=== PATIENT | female | born 1930 | race Caucasian/White ===

== ENCOUNTER → 2016-06-21 | Outpatient (CLI) | payer MEDICARE, OTHER | LOC: YCHH 09:54 | PROVIDERS: ATTEND Family Medicine | DX: E11.21 Type 2 diabetes mellitus with diabetic nephropathy (principal); I10 Essential (primary) hypertension; D64.9 Anemia, unspecified; E78.5 Hyperlipidemia, unspecified ==

== ENCOUNTER → 2016-07-21 | Outpatient (CLI) | payer MEDICARE, OTHER | LOC: GMA 17:58 | PROVIDERS: ATTEND Nurse Practitioner Family | DX: N39.0 Urinary tract infection, site not specified (principal) ==

== ENCOUNTER 2016-09-03 16:06 | Emergency (ER) | payer MEDICARE, OTHER ==
--- NOTE | 2016-09-03 16:28 | ED.PDOC ---
History of Present Illness - General Chief Complaint: Lower Extremity Injury Time Seen by Provider: 09/03/16 16:20 Source: patient - History of Present Illness Initial Comments: Ms. Myrna Danielle 85 y/o female stated her left knee wobbled while walking on her yard today twisting his left foot and ankle.Denies passing out dizziness,neck or hip pain remembers incident no head or neck pain. Occurred: just prior to arrival Pain - Lower Extremity: moderate: Left Leg, Left Knee, Left Bee, Left Ankle, Left Foot Method of Injury: fell Improving Factors: immobilization Worsening Factors: nothing Allergies/Adverse Reactions: Allergies NO KNOWN ALLERGY Allergy (Unverified 06/22/14 06:27) Home Medications: Ambulatory Orders Acetaminophen W/ Codeine [Tylenol W/ CODEINE #3] 1 ea PO Q8HRS PRN #10 Alendronate Sodium [Fosamax] 70 mg PO DAILY 06/22/14 Amlodipine Besylate [Norvasc] 10 mg PO DAILY 06/22/14 Furosemide 40 mg PO DAILY 06/22/14 Gabapentin 300 mg PO DAILY 06/22/14 Metformin HCl 500 mg PO DAILY 06/22/14 Potassium Chloride [K-Tab] 10 meq PO DAILY 06/22/14 Simvastatin 40 mg PO DAILY 06/22/14 Warfarin Sodium 3 mg PO DAILY 06/22/14 Tramadol HCl 50 mg PO Q6HRS #30 tab 09/03/16 Review of Systems - Review of Systems Constitutional: States: no symptoms reported EENTM: States: no symptoms reported Respiratory: States: no symptoms reported Cardiology: States: no symptoms reported Gastrointestinal/Abdominal: States: no symptoms reported Genitourinary: States: no symptoms reported Musculoskeletal: States: see HPI Skin: States: no symptoms reported Neurological: States: no symptoms reported Endocrine: States: no symptoms reported Past Medical History (General) - Patient Medical History Hx Seizures: No Hx Stroke: No Hx Dementia: No Hx Asthma: No Hx of COPD: No Hx Cardiac Disorders: Yes - A-Fib Hx Congestive Heart Failure: No Hx Pacemaker: No Hx Hypertension: Yes Hx Thyroid Disease: No Hx Diabetes: Yes Hx Gastroesophageal Reflux: Yes Hx Renal Disease: Yes - Tumor, partial removal of right kidney Hx Cancer: Yes - kidney Hx Hepatitis C: No Surgical History: cholecystectomy, other - hysterectomy,right kidney,left knee - Vaccination History Hx Influenza Vaccination: Yes Hx Pneumococcal Vaccination: Yes - Social History Hx Tobacco Use: No Hx Alcohol Use: No - Activities of Daily Living Patient Lives Alone: No - family - Female History Patient : No Family Medical History - Family History Mother Family History: Unknown Hx Family Diabetes: Yes - dad Hx Family Cancer: Yes - lip -son Hx Family;Other: DVT/PE -dad Physical Exam - Physical Exam General Appearance: Alert, Comfortable, No apparent distress Eyes, Ears, Nose, Throat: PERRL/EOMI, normal ENT inspection, TMs normal Neck: non-tender, full range of motion, supple, normal inspection Cardiovascular/Respiratory: regular rate, rhythm, no M/R/G, normal peripheral pulses, no JVD Gastrointestinal/Abdominal: non-tender, no organomegaly, no hernia Back: normal inspection, no CVA tenderness, no vertebral tenderness Thigh/Hip: normal inspection, non-tender Leg: bone tenderness - left leg, soft tissue tenderness Knee: bone tenderness, soft tissue tenderness - left leg Ankle: limited ROM - left , soft tissue tenderness Foot: bone tenderness - left, soft tissue tenderness Neuro/Tendon: normal sensation, normal motor functions, normal tendon functions , responds to pain, no evidence tendon injury Mental Status: alert, oriented x 3 Skin: normal color, warm/dry, other - chronic induration with brownish discoloration both lower extremities Departure - Departure Clinical Impression: Fracture due to fall, Pain of left lower extremity due to injury Fracture of foot Qualifiers: Encounter type: initial encounter Fracture type: closed Laterality: left Qualifier Code: (S92.902A) Unspecified fracture of left foot, initial encounter for closed fracture Time of Disposition: 17:25 Disposition: Discharge to Home or Self Care Condition: Fair Departure Forms: ED Discharge - Pt. Copy, Patient Portal Self Enrollment Instructions: DI for Foot Fracture Referrals: Jerry Locke MD [Primary Care Provider] - 1-2 Weeks Prescriptions: Tramadol HCl 50 mg PO Q6HRS #30 tab Home Medications: Ambulatory Orders Acetaminophen W/ Codeine [Tylenol W/ CODEINE #3] 1 ea PO Q8HRS PRN #10 Alendronate Sodium [Fosamax] 70 mg PO DAILY 06/22/14 Amlodipine Besylate [Norvasc] 10 mg PO DAILY 06/22/14 Furosemide 40 mg PO DAILY 06/22/14 Gabapentin 300 mg PO DAILY 06/22/14 Metformin HCl 500 mg PO DAILY 06/22/14 Potassium Chloride [K-Tab] 10 meq PO DAILY 06/22/14 Simvastatin 40 mg PO DAILY 06/22/14 Warfarin Sodium 3 mg PO DAILY 06/22/14 Tramadol HCl 50 mg PO Q6HRS #30 tab 09/03/16 Additional Instructions: FOLLOW UP WITH PRIMARY MD 09/05/2016 CALL FOR APPOINTMENT ICE PACK TO AFFECTED AREA 20 MINUTES 3 x a DAY during waking hours only.
--- NOTE | 2016-09-03 17:15 | RAD ---
EXAM DESCRIPTION: Knee,Left Complete CLINICAL HISTORY: 85 years, Female, fall COMPARISON: Left knee radiographs December 25, 2013. FINDINGS: Patient is status post total knee arthroplasty. There is no evidence of hardware failure. There is stable alignment of the arthroplasty hardware The patient is diffusely osteopenic. There is otherwise no acute fracture or dislocation. There is no focal soft tissue swelling or joint effusion. The bony alignment is normal. There are no significant degenerative changes. IMPRESSION: 1. Osteopenia, otherwise no acute fracture or dislocation. 2. Total knee arthroplasty hardware without evidence of complication. Electronically signed by: Ashleigh Goldberg MD 09/03/2016 5:14 PM CDT
--- NOTE | 2016-09-03 17:16 | RAD ---
CLINICAL HISTORY : fall , MAIN EXAM : AP and lateral views of the left tibia/ fibula 09/03/2016 4:32 PM CDT COMPARISON : Left knee radiographs December 25, 2013 FINDINGS : The patient is diffusely osteopenic. There is otherwise no acute fracture or dislocation. There is no focal soft tissue swelling. There is no joint effusion. Limited evaluation of the knee and ankle joints demonstrate no gross abnormalities. There is stable left total knee arthroplasty hardware without evidence of complication. The bony alignment is normal. There are no retained opaque foreign bodies. IMPRESSION: No acute fracture or dislocation. Electronically signed by: Ashleigh Goldberg MD 09/03/2016 5:15 PM CDT
--- NOTE | 2016-09-03 17:17 | RAD ---
EXAM DESCRIPTION: Ankle,Left 3 Views CLINICAL HISTORY: 85 years, Female, fall COMPARISON: None. FINDINGS: The patient is osteopenic. There is otherwise no acute fracture or dislocation. There is moderate diffuse soft tissue swelling. There is no significant joint effusion. The bony alignment is normal. Limited evaluation of the distal tibia/ fibula demonstrate no gross abnormalities. There is calcaneal enthesopathy at the plantar fascia insertion. The talus, calcaneus, tarsal, and metatarsal bones are grossly normal in appearance. The intertarsal, tarsometatarsal, and visualized metatarsophalangeal joints are grossly normal in appearance. IMPRESSION: 1. Osteopenia, otherwise no acute fracture or dislocation. 2. Diffuse soft tissue swelling. Electronically signed by: Ashleigh Goldberg MD 09/03/2016 5:16 PM CDT
--- NOTE | 2016-09-03 17:19 | RAD ---
EXAM DESCRIPTION: Foot,Left 3 Views CLINICAL HISTORY: 85 years, Female, fall COMPARISON: None. FINDINGS: There is a minimally displaced fracture through the base of the second metatarsal. There is also a nondisplaced fracture through the base of the third metatarsal. The patient is diffusely osteopenic. There is no definite additional fracture or dislocation. The bony alignment is normal. There is diffuse soft tissue swelling. The intertarsal, tarsometatarsal, metatarsophalangeal, and interphalangeal joints are grossly normal. IMPRESSION: 1. Minimally displaced fracture through the base of the second metatarsal. 2. Nondisplaced fracture through the base of the third metatarsal. 3. Diffuse soft tissue swelling. Electronically signed by: Ashleigh Goldberg MD 09/03/2016 5:18 PM CDT
[2016-09-03 18:10] VITALS: BP 134/80; TEMP 97.9; O2SAT 94
== END 2016-09-03 18:00 | disposition home or self-care (01) ==
LOC: ER 16:06
DX: S92.322A Displaced fracture of second metatarsal bone, left foot, initial encounter for closed fracture (principal); S92.335A Nondisplaced fracture of third metatarsal bone, left foot, initial encounter for closed fracture; Z96.652 Presence of left artificial knee joint; I48.91 Unspecified atrial fibrillation; I10 Essential (primary) hypertension; K21.9 Gastro-esophageal reflux disease without esophagitis; Z85.528 Personal history of other malignant neoplasm of kidney; Z79.899 Other long term (current) drug therapy; Z79.01 Long term (current) use of anticoagulants; W18.30XA Fall on same level, unspecified, initial encounter; Y92.007 Garden or yard of unspecified non-institutional (private) residence as the place of occurrence of the external cause

== ENCOUNTER → 2016-09-14 | Outpatient (CLI) | payer MEDICARE, OTHER | END | disposition home or self-care (01) | LOC: YCHH 08:40 | PROVIDERS: ATTEND Family Medicine | DX: E11.21 Type 2 diabetes mellitus with diabetic nephropathy (principal); I10 Essential (primary) hypertension; J44.9 Chronic obstructive pulmonary disease, unspecified; E78.5 Hyperlipidemia, unspecified; D64.9 Anemia, unspecified ==

== ENCOUNTER 2016-09-16 16:48 | Emergency (ER) | payer MEDICARE, OTHER ==
[2016-09-16 17:21] VITALS: TEMP 97.4
--- NOTE | 2016-09-16 17:36 | ED.PDOC ---
History of Present Illness - General Chief Complaint: Respiratory Problem Stated Complaint: shortness of breath Time Seen by Provider: 09/16/16 17:27 Source: patient, RN notes reviewed, Vital Signs reviewed, family Exam Limitations: no limitations - History of Present Illness Initial Comments: Patient comes in with c/o of SOB that started today. She broke her foot 2 weeks ago and since then has not been taking her Lasix. She has had more swelling of her feet. She reports she has a filter in for blood clots that was placed 20-25 years ago. Timing/Duration: 7-24 hours Severity: moderate Activities at Onset: none Possible Cause: occasional episodes, other - has not taken her Lasix for 2 weeks. Improving Factors: nothing Worsening Factors: nothing Associated Symptoms: edema Allergies/Adverse Reactions: Allergies NO KNOWN ALLERGY Allergy (Unverified 06/22/14 06:27) Home Medications: Ambulatory Orders Acetaminophen W/ Codeine [Tylenol W/ CODEINE #3] 1 ea PO Q8HRS PRN #10 Alendronate Sodium [Fosamax] 70 mg PO DAILY 06/22/14 Amlodipine Besylate [Norvasc] 10 mg PO DAILY 06/22/14 Furosemide 40 mg PO DAILY 06/22/14 Gabapentin 300 mg PO DAILY 06/22/14 Metformin HCl 500 mg PO DAILY 06/22/14 Potassium Chloride [K-Tab] 10 meq PO DAILY 06/22/14 Simvastatin 40 mg PO DAILY 06/22/14 Warfarin Sodium 3 mg PO DAILY 06/22/14 Tramadol HCl 50 mg PO Q6HRS #30 tab 09/03/16 Nitrofurantoin Monohydrate Mac [Macrobid] 100 mg PO BID #20 cap 09/16/16 Review of Systems - Review of Systems Constitutional: States: no symptoms reported. Denies: chills, diaphoresis, fever, malaise, weakness Respiratory: States: short of breath. Denies: cough Cardiology: States: edema. Denies: chest pain, palpitations, syncope Gastrointestinal/Abdominal: States: no symptoms reported Musculoskeletal: States: other - L foot fracture - in orthoboot Skin: States: no symptoms reported Neurological: States: no symptoms reported. Denies: headache, weakness Past Medical History (General) - Patient Medical History Hx Seizures: No Hx Stroke: No Hx Dementia: No Hx Asthma: No Hx of COPD: No Hx Cardiac Disorders: Yes - A-Fib Hx Congestive Heart Failure: Yes Hx Pacemaker: No Hx Hypertension: Yes Hx Thyroid Disease: No Hx Diabetes: Yes Hx Gastroesophageal Reflux: Yes Hx Renal Disease: Yes - Tumor, partial removal of right kidney Hx Cancer: Yes - kidney Hx Hepatitis C: No Surgical History: cholecystectomy, Hysterectomy - Vaccination History Hx Influenza Vaccination: Yes Hx Pneumococcal Vaccination: Yes - Social History Hx Tobacco Use: No Hx Alcohol Use: No - Female History Patient : No Family Medical History - Family History Mother Family History: Unknown Hx Family Diabetes: Yes - dad Hx Family Cancer: Yes - lip -son Hx Family;Other: DVT/PE -dad Physical Exam - Physical Exam General Appearance: Alert, Comfortable, No apparent distress, Well Developed, Well Groomed, Well Hydrated, Well Nourished Neck: non-tender, full range of motion, supple, normal inspection Respiratory: no respiratory distress, no accessory muscle use, decreased breath sounds - bilateral bases Cardiovascular/Chest: regular rate, rhythm, no gallop, no JVD, no murmur Gastrointestinal/Abdominal: normal bowel sounds, non tender, soft, no organomegaly, no pulsatile mass Extremity: pedal edema - 1-2+ pitting edema Neurologic: no motor/sensory deficits, alert, normal mood/affect, oriented x 3 Skin Exam: normal color, warm/dry Comments: Vital Signs - 24 hr 09/16/16 09/16/16 09/16/16 17:18 17:57 18:47 Temperature 97.4 F L Pulse Rate [ 72 72 Right Brachial] Respiratory 20 20 20 Rate Blood Pressure 136/69 157/78 [Right Arm] O2 Sat by Pulse 92 L 92 L Oximetry Progress - Progress Progress: 09/16/16 18:32 Patient with slightly elevated BNP and pulmonary congestion but no edema on CXR. Will give Lasix 40mg IV. 09/16/16 19:42 She is feeling better and breathing easier after Lasix. Will give dose of Macrobid for UTI before she leaves. Stressed importance of taking her Lasix every day. She can't continue to skip it. - Results/Orders Results/Orders: Laboratory Tests 09/16/16 09/16/16 09/16/16 17:43 18:19 18:25 WBC 6.2 RBC 4.28 Hgb 13.0 Hct 39.5 MCV 92.2 MCH 30.4 MCHC 33.0 RDW 14.1 Plt Count 176 MPV 8.5 Absolute Neuts (auto) 4.70 Absolute Lymphs (auto) 0.90 L Absolute Monos (auto) 0.50 Absolute Eos (auto) 0.10 Absolute Basos (auto) 0.00 Neutrophils % 75.4 Lymphocytes % 14.7 L Monocytes % 7.6 Eosinophils % 1.8 Basophils % 0.5 D-Dimer, Quantitative < 230 Sodium 141 Potassium 3.9 Chloride 108 Carbon Dioxide 28 Anion Gap 8.9 L BUN 15 Creatinine 1.06 BUN/Creatinine Ratio 14.2 Random Glucose 111 H Serum Osmolality 282.8 Calcium 9.0 Total Bilirubin 1.3 H AST 18 ALT 18 Alkaline Phosphatase 84 Creatine Kinase 33 CK-MB (CK-2) 1.0 CK-MB (CK-2) % Not Reportable Troponin I < 0.02 B-Natriuretic Peptide 206.0 H* Serum Total Protein 6.8 Albumin 3.5 Globulin 3.3 Albumin/Globulin Ratio 1.1 Urine Color Yellow Urine Appearance Cloudy Urine pH 7.0 Ur Specific [place] 1.020 Urine Protein 30 Urine Glucose (UA) Negative Urine Ketones Trace Urine Blood Trace-intact H Urine Nitrite Positive H Urine Bilirubin Negative Urine Urobilinogen 4.0 H Ur Leukocyte Esterase Small H Urine RBC 0-1 Urine WBC 1-3 Ur Epithelial Cells 1-3 Urine Bacteria 4+ H - EKG/XRAY/CT EKG: Fibrillation, no ST T wave changes Comments: rate 65 bpm Departure - Departure Clinical Impression: Acute exacerbation of congestive heart failure Urinary tract infection Qualifiers: Urinary tract infection type: acute cystitis Hematuria presence: with hematuria Qualifier Code: (N30.01) Acute cystitis with hematuria Time of Disposition: 19:45 Disposition: Discharge to Home or Self Care Condition: Fair Departure Forms: ED Discharge - Pt. Copy, Patient Portal Self Enrollment Instructions: DI for Heart Failure, DI for Urinary Tract Infection (UTI) Diet: resume usual diet Activity: increase activity as tolerated Prescriptions: Nitrofurantoin Monohydrate Mac [Macrobid] 100 mg PO BID #20 cap Home Medications: Ambulatory Orders Acetaminophen W/ Codeine [Tylenol W/ CODEINE #3] 1 ea PO Q8HRS PRN #10 Alendronate Sodium [Fosamax] 70 mg PO DAILY 06/22/14 Amlodipine Besylate [Norvasc] 10 mg PO DAILY 06/22/14 Furosemide 40 mg PO DAILY 06/22/14 Gabapentin 300 mg PO DAILY 06/22/14 Metformin HCl 500 mg PO DAILY 06/22/14 Potassium Chloride [K-Tab] 10 meq PO DAILY 06/22/14 Simvastatin 40 mg PO DAILY 06/22/14 Warfarin Sodium 3 mg PO DAILY 06/22/14 Tramadol HCl 50 mg PO Q6HRS #30 tab 09/03/16 Nitrofurantoin Monohydrate Mac [Macrobid] 100 mg PO BID #20 cap 09/16/16
--- NOTE | 2016-09-16 18:02 | RAD ---
Procedure: XR CHEST 1 VIEW Exam Date: 09/16/2016 Ordering Provider: Joan Lazo Clinical Indication: SOB Comparison: 12/07/2010 Findings: The heart is enlarged. Mild prominence of the central pulmonary vasculature and interstitium bilaterally without isela pulmonary edema. Mediastinal contour is normal. Aortic contour is normal. There is no focal lung consolidation. No pleural effusion. There is no pneumothorax. There is no acute bony or soft tissue abnormality. Impression: 1. No acute abnormalities in the chest. 2. Cardiomegaly. Electronically signed by: Clint Kelly MD 09/16/2016 6:01 PM CDT
[2016-09-16] MEDS ORDERED: FUROSEMIDE INJ 40 MG/4 ML VIAL IV ONE (18:17)
[2016-09-16 19:27] VITALS: O2SAT 94
[2016-09-16] MEDS ORDERED: NITROFURANTOIN MONOHYDRATE MAC 100 MG CAP PO ONE (19:42)
[2016-09-16 20:18] VITALS: BP 164/91
== END 2016-09-16 20:05 | disposition home or self-care (01) ==
LOC: ER 16:48
DX: I11.0 Hypertensive heart disease with heart failure (principal); I50.9 Heart failure, unspecified; N30.01 Acute cystitis with hematuria; I48.91 Unspecified atrial fibrillation; Z85.528 Personal history of other malignant neoplasm of kidney; Z90.5 Acquired absence of kidney; Z79.01 Long term (current) use of anticoagulants; Z79.899 Other long term (current) drug therapy
CPT/HCPCS: 36415; 71010; 80053; 81001; 82550; 82553; 83880; 84484; 85025; 85379; 87086; 87088; 87186; 93005; J1940

== ENCOUNTER → 2016-12-14 | Outpatient (CLI) | payer MEDICARE, OTHER | END | disposition home or self-care (01) | LOC: YCHH 09:48 | PROVIDERS: ATTEND Family Medicine | DX: E11.21 Type 2 diabetes mellitus with diabetic nephropathy (principal); I10 Essential (primary) hypertension; D64.9 Anemia, unspecified; E78.5 Hyperlipidemia, unspecified ==

== ENCOUNTER → 2017-01-17 | Outpatient (CLI) | payer MEDICARE, OTHER | END | disposition home or self-care (01) | LOC: YCHH 09:03 | PROVIDERS: ATTEND Family Medicine | DX: R30.0 Dysuria (principal); R39.15 Urgency of urination ==

== ENCOUNTER → 2017-03-22 | Outpatient (CLI) | payer MEDICARE, OTHER | END | disposition home or self-care (01) | LOC: GMAJ 08:43 | PROVIDERS: ATTEND Family Medicine | DX: E11.21 Type 2 diabetes mellitus with diabetic nephropathy (principal); I50.9 Heart failure, unspecified; E78.5 Hyperlipidemia, unspecified; D64.9 Anemia, unspecified ==

== ENCOUNTER → 2017-06-21 | Outpatient (CLI) | payer MEDICARE, OTHER | END | disposition home or self-care (01) | LOC: YCHH 08:55 | PROVIDERS: ATTEND Family Medicine | DX: E11.21 Type 2 diabetes mellitus with diabetic nephropathy (principal); I11.0 Hypertensive heart disease with heart failure; I50.9 Heart failure, unspecified; D64.9 Anemia, unspecified; E78.5 Hyperlipidemia, unspecified ==

== ENCOUNTER → 2017-09-12 | Outpatient (CLI) | payer MEDICARE, OTHER | END | disposition home or self-care (01) | LOC: YCHH 11:36 | PROVIDERS: ATTEND Family Medicine | DX: I11.0 Hypertensive heart disease with heart failure (principal); I50.9 Heart failure, unspecified; J44.9 Chronic obstructive pulmonary disease, unspecified; E11.9 Type 2 diabetes mellitus without complications ==

== ENCOUNTER 2017-10-16 10:20 | Emergency (ER) | payer MEDICARE, OTHER ==
[2017-10-16 10:44] VITALS: TEMP 97.8; O2SAT 95
--- NOTE | 2017-10-16 10:54 | ED.PDOC ---
History of Present Illness - General Chief Complaint: Cardiovascular Problem Stated Complaint: home health said my blood pressure is high Time Seen by Provider: 10/16/17 10:39 Source: patient Exam Limitations: no limitations - History of Present Illness Initial Comments: The patient is an 87-year-old female sitting up. By home health secondary to an elevated blood pressure at home. She reports her blood pressures were 210/100 at home. She was feeling fine with the blood pressure. No symptoms. No chest pain. No shortness of breath. No headache. No visual changes. No syncope or near syncope. No palpitations. She has reported an increased weight of approximately 5 pounds over the last 3 or 4 days and does have some increased swelling to her left lower extremity over that course. She has not had any increased cough. No difficulty with breathing when lying back. By the time she arrives here her blood pressures are in the 150s over 70s. Again she is otherwise asymptomatic. She does have atrial fibrillation that is rate controlled and long-standing. Timing/Duration: unsure Severity: mild Improving Factors: nothing Worsening Factors: nothing Associated Symptoms: denies symptoms Allergies/Adverse Reactions: Allergies NO KNOWN ALLERGY Allergy (Unverified 10/16/17 10:38) Home Medications: Ambulatory Orders Amlodipine Besylate [Norvasc] 10 mg PO DAILY 06/22/14 Furosemide 40 mg PO DAILY 06/22/14 Gabapentin 300 mg PO DAILY 06/22/14 Metformin HCl 500 mg PO DAILY 06/22/14 Potassium Chloride [K-Tab] 10 meq PO DAILY 06/22/14 Simvastatin 40 mg PO DAILY 06/22/14 Warfarin Sodium 2.5 mg PO DAILY 06/22/14 Nitrofurantoin Monohydrate Mac [Macrobid] 100 mg PO BID #20 cap 09/16/16 Review of Systems - Review of Systems Constitutional: States: no symptoms reported EENTM: States: no symptoms reported Respiratory: States: no symptoms reported Cardiology: States: no symptoms reported Gastrointestinal/Abdominal: States: no symptoms reported Genitourinary: States: no symptoms reported Musculoskeletal: States: no symptoms reported Skin: States: see HPI Neurological: States: no symptoms reported Endocrine: States: no symptoms reported All other Systems: No Change from Baseline Past Medical History (General) - Patient Medical History Hx Seizures: No Hx Stroke: No Hx Dementia: No Hx Asthma: No Hx of COPD: No Hx Cardiac Disorders: Yes Hx Congestive Heart Failure: No Hx Pacemaker: No Hx Hypertension: Yes Hx Thyroid Disease: No Hx Diabetes: Yes Hx Gastroesophageal Reflux: No Hx Renal Disease: No Hx Cancer: No Hx of HIV: No Hx Hepatitis C: No Hx MRSA: No Surgical History: Hysterectomy - Vaccination History Hx Tetanus, Diphtheria Vaccination: Yes Hx Influenza Vaccination: Yes Hx Pneumococcal Vaccination: No Immunizations Up to Date: No - Social History Hx Tobacco Use: No Hx Chewing Tobacco Use: No Hx Alcohol Use: No Hx Substance Use: No Hx Substance Use Treatment: No Hx Depression: No Feels Threatened In Home Enviroment: No Feels Threatened In a Relationship: No Hx Physical Abuse: No Hx Emotional Abuse: No Hx Suspected Abuse: No - Female History Patient is a Female of Child Bearing Age (10 -59 yrs old): No Patient : No Family Medical History - Family History Mother Family History: Unknown Hx Family Asthma: No Hx Family Diabetes: Yes - dad Hx Family Cancer: Yes - lip -son Hx Family;Other: DVT/PE -dad Physical Exam - Physical Exam General Appearance: Alert, Comfortable, No apparent distress Eye Exam: bilateral normal Ears, Nose, Throat: normal ENT inspection, normal pharynx Neck: non-tender, supple Respiratory: lungs clear, normal breath sounds, no respiratory distress, no accessory muscle use Cardiovascular/Chest: normal peripheral pulses, no edema, other - regular rate Irregular rhythm. Peripheral Pulses: radial,right: 2+, radial,left: 2+, dorsalis pedis,right: 2+, dorsalis pedis,left: 2+ Gastrointestinal/Abdominal: non tender - obese, soft Rectal Exam: deferred Extremity: normal range of motion, no calf tenderness, normal capillary refill, other - the patient does have +2 edema bilateral lower extremity slightly more on the left than the right. No evidence of any obvious infection or cellulitis. No weeping edema. No blisters. No palpable cords. Neurologic: gas regulator repairer helper II-XII nml as tested, alert, normal mood/affect, oriented x 3 Skin Exam: normal color - chronic color changes to bilateral ankles. Comments: Vital Signs - 24 hr 10/16/17 10:40 Temperature 97.8 F Pulse Rate [ 76 Left Radial] Respiratory 18 Rate Blood Pressure 159/79 [Left Arm] O2 Sat by Pulse 95 Oximetry Progress - Progress Progress: 10/16/17 10:56 the patient is an 87-year-old female presenting due to a very mild CHF exacerbation. elevated blood pressure noted at home had normalized by time of her arrival here. Additional workup does not appear to be warranted at this time. The patient received a large dose of oral Lasix here this morning. She is to continue her Lasix at 40 mg twice a day for the next 2 days. She needs to maintain a fluid restriction of around 1500 cc. She needs to follow her weights. She also needs to use her compression stockings to help reduce lower extremity edema. She can record her blood pressures 3 times daily when she is at rest. She needs to follow up with her primary care doctor in 3 or 4 days for reevaluation. Lab work may be warranted at that time for follow-up diuresis. ER warnings were given for any worsening. - Results/Orders Results/Orders: EKG shows atrial fibrillation that is rate controlled. She does have small voltage. There is a Q-wave in lead 3. There is poor R-wave progression in anterior leads. All of these EKG changes were present in her EKG from 2017. Departure - Departure Clinical Impression: Acute exacerbation of CHF (congestive heart failure) Qualifiers: Congestive heart failure type: unspecified congestive heart failure type Qualified Code(s): I50.9 - Heart failure, unspecified Disposition: Discharge to Home or Self Care Condition: Fair Departure Forms: ED Discharge - Pt. Copy, Patient Portal Self Enrollment Instructions: DI for Heart Failure Diet: diabetic diet Activity: increase activity as tolerated Referrals: Jerry Locke MD [Primary Care Provider] - 1-5 Days Home Medications: Ambulatory Orders Amlodipine Besylate [Norvasc] 10 mg PO DAILY 06/22/14 Furosemide 40 mg PO DAILY 06/22/14 Gabapentin 300 mg PO DAILY 06/22/14 Metformin HCl 500 mg PO DAILY 06/22/14 Potassium Chloride [K-Tab] 10 meq PO DAILY 06/22/14 Simvastatin 40 mg PO DAILY 06/22/14 Warfarin Sodium 2.5 mg PO DAILY 06/22/14 Nitrofurantoin Monohydrate Mac [Macrobid] 100 mg PO BID #20 cap 09/16/16 Additional Instructions: the patient is an 87-year-old female presenting due to a very mild CHF exacerbation. elevated blood pressure noted at home had normalized by time of her arrival here. Additional workup does not appear to be warranted at this time. The patient received a large dose of oral Lasix here this morning. She is to continue her Lasix at 40 mg twice a day for the next 2 days. She needs to maintain a fluid restriction of around 1500 cc. She needs to follow her weights. She also needs to use her compression stockings to help reduce lower extremity edema. She can record her blood pressures 3 times daily when she is at rest. She needs to follow up with her primary care doctor in 3 or 4 days for reevaluation. Lab work may be warranted at that time for follow-up diuresis. ER warnings were given for any worsening. It is possible that other home medications may be affecting her edema as well.
[2017-10-16] MEDS: FUROSEMIDE 40 MG TAB PO ONE (11:10)
[2017-10-16 12:22] VITALS: BP 189/84
== END 2017-10-16 11:26 | disposition home or self-care (01) ==
LOC: ER 10:20
DX: I11.0 Hypertensive heart disease with heart failure (principal); I50.9 Heart failure, unspecified; E11.9 Type 2 diabetes mellitus without complications; I48.91 Unspecified atrial fibrillation; Z79.01 Long term (current) use of anticoagulants; Z79.84 Long term (current) use of oral hypoglycemic drugs

== ENCOUNTER → 2017-10-18 | Outpatient (CLI) | payer MEDICARE, OTHER | LOC: GMAJ 16:35 | PROVIDERS: ATTEND Family Medicine | DX: I50.9 Heart failure, unspecified (principal) ==

== ENCOUNTER → 2018-01-01 | Outpatient (CLI) | payer MEDICARE, OTHER | LOC: GMAJ 08:41 | PROVIDERS: ATTEND Family Medicine | DX: E11.21 Type 2 diabetes mellitus with diabetic nephropathy (principal); I10 Essential (primary) hypertension; E78.5 Hyperlipidemia, unspecified; D64.9 Anemia, unspecified ==

== ENCOUNTER → 2018-03-20 | Outpatient (CLI) | payer MEDICARE, OTHER | LOC: YCHH 09:05 | PROVIDERS: ATTEND Family Medicine | DX: E11.21 Type 2 diabetes mellitus with diabetic nephropathy (principal); I10 Essential (primary) hypertension; D64.9 Anemia, unspecified ==

== ENCOUNTER → 2018-06-13 | Outpatient (CLI) | payer MEDICARE, OTHER | LOC: YCHH 09:22 | PROVIDERS: ATTEND Family Medicine | DX: E11.21 Type 2 diabetes mellitus with diabetic nephropathy (principal); D64.9 Anemia, unspecified; Z79.01 Long term (current) use of anticoagulants ==

== ENCOUNTER → 2018-06-25 | Outpatient (CLI) | payer MEDICARE, OTHER ==
--- NOTE | 2018-06-25 10:07 | CT ---
EXAM DESCRIPTION: Head CLINICAL HISTORY: DEMENTIA COMPARISON: None available TECHNIQUE: Noncontrast head CT was performed with routine protocol. FINDINGS: Normal abbasi-white matter differentiation. Ventricles and sulci are prominent consistent with age-related cerebral volume loss. Low density white matter is consistent with chronic microvascular ischemic changes. No high density hemorrhage, focal edema or shift of the midline. No sulcal effacement. Normal orbital contents. Basilar cisterns appear clear. Intact calvarium with no fracture or lytic lesion. Calcified intracranial internal carotid arteries. Normal aeration of tympanic cavities and mastoid air cells. No fluid levels in the paranasal sinuses. Nodular mucosal thickening in the sphenoid sinus suggests low-grade chronic inflammation. Patchy opacification of a few scattered ethmoid air cells. Skull base appears intact. Symmetrical internal auditory canals. Coronal and sagittal reformatted images confirm the findings. IMPRESSION: No acute intracranial pathologic process. This exam was performed according to our departmental dose-optimization program, which includes automated exposure control, adjustment of the mA and/or kV according to patient size and/or use of iterative reconstruction technique. Total DLP equals 752.48 mGycm. Electronically signed by: Jose Jenkins MD 06/25/2018 10:06 AM [facility]
== END ==
LOC: MRI 10:13
PROVIDERS: ATTEND Family Medicine
DX: Z82.41 Family history of sudden cardiac death (principal)

== ENCOUNTER 2018-08-26 21:28 | Emergency (ER) | payer MEDICARE, OTHER ==
[2018-08-26] MEDS ORDERED: PROMETHAZINE HCL INJ 25 MG/ML VIAL IM ONE (22:37)
[2018-08-26] MEDS ORDERED: ALPRAZolam 0.25 MG TAB PO ONE (22:37)
[2018-08-26] MEDS ORDERED: DEXAMETHASONE INJ 4 MG/ML VIAL IM ONE (22:37)
--- NOTE | 2018-08-26 22:43 | ED.PDOC ---
History of Present Illness - General Chief Complaint: General Stated Complaint: dizzy, headache, blood sugar 282 Time Seen by Provider: 08/26/18 22:14 Source: patient Exam Limitations: no limitations - History of Present Illness Initial Comments: Myrna Danielle87 y/o female stated that she had been feeling dizzy for the last 3 months whenever she moves around.No nausea ,vomiting,but for the last 2 days had headache on top of head,no blurry vision,no chest pains has ringing both ears,no hearing loss,no weakness,no slurred speech..Has multiple medical problems Timing/Duration: other - 3 months see hpi Severity: moderate Improving Factors: rest Worsening Factors: movement Associated Symptoms: headaches - see hpi Allergies/Adverse Reactions: Allergies NO KNOWN ALLERGY Allergy (Verified 08/26/18 22:17) Home Medications: Ambulatory Orders Amlodipine Besylate [Norvasc] 10 mg PO DAILY 06/22/14 Furosemide 40 mg PO DAILY 06/22/14 Gabapentin 300 mg PO DAILY 06/22/14 Metformin HCl 500 mg PO DAILY 06/22/14 Potassium Chloride [K-Tab] 10 meq PO DAILY 06/22/14 Simvastatin 40 mg PO DAILY 06/22/14 Warfarin Sodium 2.5 mg PO DAILY 06/22/14 Nitrofurantoin Monohydrate Mac [Macrobid] 100 mg PO BID #20 cap 09/16/16 Meclizine HCl [Meclizine 25] 50 mg PO TID PRN #30 tab 08/26/18 Review of Systems - Review of Systems Constitutional: States: no symptoms reported EENTM: States: no symptoms reported Respiratory: States: no symptoms reported Cardiology: States: no symptoms reported Gastrointestinal/Abdominal: States: no symptoms reported Genitourinary: States: no symptoms reported Musculoskeletal: States: no symptoms reported Skin: States: no symptoms reported Neurological: States: headache Past Medical History (General) - Patient Medical History Hx Seizures: No Hx Stroke: No Hx Dementia: No Hx Asthma: No Hx of COPD: No Hx Cardiac Disorders: Yes - A-Fib Hx Congestive Heart Failure: Yes Hx Pacemaker: No Hx Hypertension: Yes Hx Thyroid Disease: No Hx Diabetes: Yes Hx Gastroesophageal Reflux: No Hx Renal Disease: Yes - 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 Hx Cancer: Yes - kidney Hx of HIV: No Hx Hepatitis C: No Hx MRSA: No Surgical History: cholecystectomy, other - nephrectomy,IVC filter for recurrent PE - Vaccination History Hx Tetanus, Diphtheria Vaccination: Yes Hx Influenza Vaccination: Yes Hx Pneumococcal Vaccination: No - Social History Hx Tobacco Use: No Hx Chewing Tobacco Use: No Hx Alcohol Use: No Hx Substance Use: No Hx Substance Use Treatment: No Hx Depression: No Hx Physical Abuse: No Hx Emotional Abuse: No Hx Suspected Abuse: No - Activities of Daily Living Grooming Ability: Independent Eating (Feeding) Ability: Independent Toileting Ability: Independent - Female History Patient : No Family Medical History - Family History Mother Family History: Unknown Hx Family Asthma: No Hx Cardiac Disease: Yes - mom Hx Family Diabetes: Yes - dad Hx Family Cancer: Yes - lip -son Hx Family;Other: DVT/PE -dad Physical Exam - Physical Exam General Appearance: Alert, Comfortable, Other - speech fluent Eye Exam: bilateral normal Ears, Nose, Throat: hearing grossly normal, normal ENT inspection, normal pharynx Neck: full range of motion, supple Respiratory: lungs clear, normal breath sounds Cardiovascular/Chest: normal peripheral pulses, no gallop, no murmur, irregularly irregular Peripheral Pulses: radial,right: 2+, radial,left: 2+ Gastrointestinal/Abdominal: non tender, soft, no organomegaly Neurologic: alert, normal mood/affect, oriented x 3 Skin Exam: normal color, warm/dry Progress - Progress Progress: 08/26/18 22:53 Vital Signs - 8 hr 08/26/18 08/26/18 21:47 22:05 Temperature 99.0 F Pulse Rate [ 87 76 monitor] Respiratory 16 Rate Blood Pressure 179/102 144/71 [Left Arm] O2 Sat by Pulse 95 Oximetry - Results/Orders Results/Orders: 08/26/18 22:45 EKG STAT Laboratory Results - last 24 hr 08/26/18 22:36 WBC 6.3 RBC 4.36 Hgb 13.7 Hct 40.8 MCV 93.7 MCH 31.4 H MCHC 33.5 RDW 14.0 Plt Count 183 MPV 8.9 Absolute Neuts (auto) 4.50 Absolute Lymphs (auto) 1.10 Absolute Monos (auto) 0.60 Absolute Eos (auto) 0.10 Absolute Basos (auto) 0.00 Neutrophils % 71.1 Lymphocytes % 16.8 L Monocytes % 9.6 H Eosinophils % 2.0 Basophils % 0.5 PT 22.3 H INR 2.25 H PTT (SP) 35.0 H Sodium 139 Potassium 3.7 Chloride 100 L Carbon Dioxide 31 Anion Gap 11.7 L BUN 16 Creatinine 0.98 BUN/Creatinine Ratio 16.3 Random Glucose 219 H Serum Osmolality 285.4 Calcium 8.7 Magnesium 1.9 Total Bilirubin 1.1 H Direct Bilirubin 0.2 Indirect Bilirubin 0.9 H AST 21 ALT 22 Alkaline Phosphatase 106 Creatine Kinase 87 CK-MB (CK-2) 2.6 CK-MB (CK-2) % Not Reportable Troponin I < 0.02 Serum Total Protein 6.8 Albumin 3.7 Discuss all test results with patient and family advised to recheck with primary Md - EKG/XRAY/CT EKG: Atrial, Fibrillation, no ST T wave changes Comments: HR-71 CT Ordered: Yes - head-no acute intracranial abnormalities Departure - Departure Clinical Impression: Dizziness, nonspecific, Atrial fibrillation with normal ventricular rate, Anticoagulation adequate with anticoagulant therapy Headache Qualifiers: Headache type: unspecified Headache chronicity pattern: unspecified pattern Intractability: not intractable Qualified Code(s): R51 - Headache Hyperglycemia due to type 2 diabetes mellitus Qualifiers: Diabetes mellitus termite treater helper insulin use: without termite treater helper use Qualified Code(s): E11.65 - Type 2 diabetes mellitus with hyperglycemia Time of Disposition: 23:50 Disposition: Discharge to Home or Self Care Condition: Fair Departure Forms: ED Discharge - Pt. Copy, Patient Portal Self Enrollment Instructions: Dizziness, Nonvertigo, (DC), Vertigo (a Type of Dizziness) (DC), Vertigo (a Type of Dizziness) Referrals: Jerry Locke MD [Primary Care Provider] - 1-2 Weeks Prescriptions: Meclizine HCl [Meclizine 25] 50 mg PO TID PRN #30 tab PRN Reason: Dizziness Home Medications: Ambulatory Orders Amlodipine Besylate [Norvasc] 10 mg PO DAILY 06/22/14 Furosemide 40 mg PO DAILY 06/22/14 Gabapentin 300 mg PO DAILY 06/22/14 Metformin HCl 500 mg PO DAILY 06/22/14 Potassium Chloride [K-Tab] 10 meq PO DAILY 06/22/14 Simvastatin 40 mg PO DAILY 06/22/14 Warfarin Sodium 2.5 mg PO DAILY 06/22/14 Nitrofurantoin Monohydrate Mac [Macrobid] 100 mg PO BID #20 cap 09/16/16 Meclizine HCl [Meclizine 25] 50 mg PO TID PRN #30 tab 08/26/18 Additional Instructions: Continue with all home medications;follow up with your primary Md for recheck
--- NOTE | 2018-08-26 23:12 | CT ---
EXAM: CT head without contrast CLINICAL INDICATION: Headache COMPARISON: 06/25/2018 TECHNIQUE: The CT scan was done using contiguous axial 2.5 mm sections through the brain. This exam was performed according to our departmental dose-optimization program, which includes automated exposure control, adjustment of the mA and/or kV according to patient size and/or use of iterative reconstruction technique. FINDINGS: There is no midline shift, mass effect, or extraaxial fluid collection. There is no evidence of acute intracranial hemorrhage, mass lesion, or cerebral edema. Moderate diffuse atrophy and nonspecific chronic ischemic changes are noted. Bone window images reveal no evidence of a skull fracture. IMPRESSION: No evidence of an acute intracranial process. Electronically signed by: Anirudh Meza MD 08/26/2018 11:09 PM CDT
[2018-08-26 23:13] VITALS: O2SAT 100
[2018-08-27 00:12] VITALS: BP 145/69; TEMP 98.2
== END 2018-08-27 00:11 | disposition home or self-care (01) ==
LOC: ER 21:28
DX: R42 Dizziness and giddiness (principal); R51 Headache; E11.65 Type 2 diabetes mellitus with hyperglycemia; I48.91 Unspecified atrial fibrillation; I50.9 Heart failure, unspecified; I11.0 Hypertensive heart disease with heart failure; Z79.01 Long term (current) use of anticoagulants; Z85.528 Personal history of other malignant neoplasm of kidney; Z90.5 Acquired absence of kidney; Z79.899 Other long term (current) drug therapy; Z79.84 Long term (current) use of oral hypoglycemic drugs
CPT/HCPCS: 36415; 70450; 80048; 80076; 82550; 82553; 84484; 85025; 85610; 85730; 93005; J1100; J2550

== ENCOUNTER → 2018-09-18 | Outpatient (CLI) | payer MEDICARE, OTHER | LOC: YCHH 09:34 | PROVIDERS: ATTEND Family Medicine | DX: E11.21 Type 2 diabetes mellitus with diabetic nephropathy (principal); E78.5 Hyperlipidemia, unspecified; I10 Essential (primary) hypertension ==

== ENCOUNTER 2018-10-14 07:46 | Observation (INO) | payer MEDICARE, OTHER ==
--- NOTE | 2018-10-14 07:59 | ED.PDOC ---
History of Present Illness - General Chief Complaint: General Stated Complaint: Pt complains of weakness in the R leg. Time Seen by Provider: 10/14/18 07:56 Source: patient, EMS Exam Limitations: no limitations - History of Present Illness Initial Comments: patient comes in today for sudden onset of right-sided weakness. Patient states her legs always hurt from neuropathy and from her congestive heart failure that causes swelling but today it was weakness as well. When she went to get up she didn't think that she can hold herself on her legs and had to call 911. Patient was able to help with transfer and she does state it is a little bit better now. Patient states her right leg is always a little bit bigger than her left and has been for years. Patient has not had any acute injury and she felt in her normal usual health when she went to sleep last night. Patient denies any headache, vision change, change in sensation, difficulty finding words, or altered LOC. She has no chest pain or shortness of breath. Patient has chronic back pain but does not appear to be new today. Timing/Duration: 1 hour Severity: moderate Improving Factors: other - has gotten better since arrival of EMS Worsening Factors: nothing Associated Symptoms: denies symptoms Allergies/Adverse Reactions: Allergies NO KNOWN ALLERGY Allergy (Verified 10/14/18 08:04) Home Medications: Ambulatory Orders Amlodipine Besylate [Norvasc] 10 mg PO DAILY 06/22/14 Furosemide 40 mg PO BID 06/22/14 Metformin HCl 500 mg PO BID 06/22/14 Potassium Chloride [K-Tab] 10 meq PO BID 06/22/14 Warfarin Sodium 2 mg PO DAILY 06/22/14 Alendronate Sodium [Fosamax] 70 mg PO WKLY 10/14/18 Allopurinol 300 mg PO DAILY 10/14/18 Donepezil Hydrochloride [Donepezil HCl] 10 mg PO QPM 10/14/18 Duloxetine HCl 60 mg PO DAILY 10/14/18 Nitroglycerin 0.4 mg Tab [Nitrostat] 0.4 mg SL PRN PRN 10/14/18 Ranitidine HCl 150 mg PO DAILY 10/14/18 Rosuvastatin Calcium 20 mg PO DAILY 10/14/18 Sulfamethoxazole-Trimethoprim [Bactrim Ds 800-160 mg] 1 tablet PO BID 10/14/18 Review of Systems - Review of Systems Constitutional: States: no symptoms reported. Denies: chills, fever, weakness EENTM: States: no symptoms reported. Denies: eye pain, ear pain, nose congestion Respiratory: States: no symptoms reported. Denies: cough, short of breath Cardiology: States: no symptoms reported. Denies: chest pain, palpitations Gastrointestinal/Abdominal: States: no symptoms reported. Denies: abdominal pain, nausea, vomiting Genitourinary: States: no symptoms reported Musculoskeletal: States: see HPI Neurological: States: see HPI Past Medical History (General) - Patient Medical History Hx Seizures: No Hx Stroke: No Hx Dementia: No Hx Asthma: No Hx of COPD: No Hx Cardiac Disorders: Yes - A-Fib Hx Congestive Heart Failure: Yes Hx Pacemaker: No Hx Hypertension: Yes Hx Thyroid Disease: No Hx Diabetes: Yes Hx Gastroesophageal Reflux: No Hx Renal Disease: Yes - 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 Hx Cancer: Yes - kidney Hx of HIV: No Hx Hepatitis C: No Hx MRSA: No - Vaccination History Hx Tetanus, Diphtheria Vaccination: Yes Hx Influenza Vaccination: Yes Hx Pneumococcal Vaccination: No - Social History Hx Tobacco Use: No Hx Chewing Tobacco Use: No Hx Alcohol Use: No Hx Substance Use: No Hx Substance Use Treatment: No Hx Depression: No Hx Physical Abuse: No Hx Emotional Abuse: No Hx Suspected Abuse: No - Female History Patient : No Family Medical History - Family History Mother Family History: Unknown Hx Family Asthma: No Hx Cardiac Disease: Yes - mom Hx Family Diabetes: Yes - dad Hx Family Cancer: Yes - lip -son Hx Family;Other: DVT/PE -dad Physical Exam - Physical Exam General Appearance: Alert, Comfortable, No apparent distress Eye Exam: bilateral normal Ears, Nose, Throat: hearing grossly normal, normal ENT inspection, normal pharynx Neck: non-tender, full range of motion, supple, normal inspection Respiratory: chest non-tender, lungs clear, normal breath sounds, no respiratory distress Cardiovascular/Chest: normal peripheral pulses, regular rate, rhythm, no JVD, no murmur Peripheral Pulses: radial,right: 2+, radial,left: 2+, dorsalis pedis,right: 2+, dorsalis pedis,left: 2+ Gastrointestinal/Abdominal: normal bowel sounds, non tender, soft Back Exam: no CVA tenderness Extremity: non-tender, other - chronic changes of hyperpigmentation bilateral feet with decreased sensation to knees, no erythema, no pitting edema, well healed scars consistent with surgical history Neurologic: triage registered nurse II-XII nml as tested, no motor/sensory deficits, alert, oriented x 3, other - fine motor is normal, no drift and able to hold right leg up for 5 seconds but is slightly weaker than the left DTR: 2+: Biceps, left, Biceps, right, Patellar, left, Patellar, right Skin Exam: normal color Progress - Progress Progress: 10/14/18 09:[address] Perez contacted and he does not feel any other treatment other than in hospital observation is needed. Would consider CTA including neck to make sure no severe stenosis and repeat CT or MRI as per usual protocol. - Results/Orders Results/Orders: Laboratory Results WBC 6.5 K/mm3 (4.8-10.8) 10/14/18 08:00 RBC 4.15 M/mm3 (4.20-5.40) L 10/14/18 08:00 Hgb 12.9 gm/dL (12.0-16.0) 10/14/18 08:00 Hct 38.6 % (36.0-47.0) 10/14/18 08:00 MCV 93.0 fl (81.0-99.0) 10/14/18 08:00 MCH 31.2 pg (27.0-31.0) H 10/14/18 08:00 MCHC 33.6 g/dL (33.0-37.0) 10/14/18 08:00 RDW 14.1 % (11.5-14.5) 10/14/18 08:00 Plt Count 179 K/mm3 (130-400) 10/14/18 08:00 MPV 9.1 fl (7.40-10.4) 10/14/18 08:00 Absolute Neuts (auto) 5.00 K/uL (1.8-6.8) 10/14/18 08:00 Absolute Lymphs (auto) 0.80 K/uL (1.0-3.4) L 10/14/18 08:00 Absolute Monos (auto) 0.60 K/uL (0.2-0.8) 10/14/18 08:00 Absolute Eos (auto) 0.10 K/uL (0.0-0.4) 10/14/18 08:00 Absolute Basos (auto) 0.00 K/uL (0.0-0.1) 10/14/18 08:00 Neutrophils % 76.3 % (42.0-78.0) 10/14/18 08:00 Lymphocytes % 12.5 % (20.0-50.0) L 10/14/18 08:00 Monocytes % 9.4 % (2.0-9.0) H 10/14/18 08:00 Eosinophils % 1.2 % (1.0-5.0) 10/14/18 08:00 Basophils % 0.6 % (0.0-2.0) 10/14/18 08:00 Sodium 136 mmol/L (135-145) 10/14/18 08:00 Potassium 3.3 mmol/L (3.6-5.0) L 10/14/18 08:00 Chloride 97 mmol/L (101-111) L 10/14/18 08:00 Carbon Dioxide 28 mmol/L (21-31) 10/14/18 08:00 Anion Gap 14.3 (12-18) 10/14/18 08:00 BUN 16 mg/dL (7-18) 10/14/18 08:00 Creatinine 1.01 mg/dL (0.6-1.3) 10/14/18 08:00 BUN/Creatinine Ratio 15.8 (10-20) 10/14/18 08:00 Random Glucose 176 mg/dL (70-105) H 10/14/18 08:00 Serum Osmolality 277.5 mOsm/L (275-295) 10/14/18 08:00 Calcium 8.8 mg/dL (8.4-10.2) 10/14/18 08:00 Total Bilirubin 0.9 mg/dL (0.2-1.0) 10/14/18 08:00 AST 21 IU/L (10-42) 10/14/18 08:00 ALT 21 IU/L (10-60) 10/14/18 08:00 Alkaline Phosphatase 85 IU/L (42-121) 10/14/18 08:00 Creatine Kinase 71 IU/L (26-140) 10/14/18 08:00 CK-MB (CK-2) 2.7 ng/mL (0.0-4.4) 10/14/18 08:00 CK-MB (CK-2) % Not Reportable 10/14/18 08:00 Troponin I < 0.02 ng/mL (0.01-0.05) 10/14/18 08:00 Serum Total Protein 6.6 gm/dL (6.4-8.2) 10/14/18 08:00 Albumin 3.3 g/dl (3.2-5.5) 10/14/18 08:00 Globulin 3.3 gm/dL (2.3-3.5) 10/14/18 08:00 Albumin/Globulin Ratio 1.0 (1.1-1.9) L 10/14/18 08:00 Reporting MD:Breanne Irwin [employer] date: Dictation date: EXAM: CT Head Without Intravenous Contrast CLINICAL HISTORY: 88 years old and is Female; weakness right leg on awakening TECHNIQUE: Axial computed tomography images of the head/brain without intravenous contrast. Sagittal and coronal reformatted images were created and reviewed. This CT exam was performed using one or more of the following dose reduction techniques: automated exposure control, adjustment of the mA and/or kV according to patient size, and/or use of iterative reconstruction technique. COMPARISON: No relevant prior studies available. FINDINGS: Limitations: None. Brain: There is age related cortical atrophy and periventricular white matter hypodensity most consistent with chronic small ischemic change. No acute infarct, hemorrhage or mass. Ventricles: Unremarkable. No ventriculomegaly. Bones/joints: Unremarkable. No acute fracture. Soft tissues: Unremarkable. Sinuses: Chronic maxillary, sphenoid and ethmoid sinus thickening. Head Accession Number : [id number] Modality : CT Requested Proc. ID : 1 Patient : MIMI ARCHULETA Patient : Referring Physician : SHANNON MUÑOZ Date of Study : 07:56 Order Status : Report Available - ZZ Report exported on 08:51 -- Page 1 of 2 Mastoid air cells: Unremarkable as visualized. No mastoid effusion. IMPRESSION: No acute findings Report Reporting MD:Breanne Irwin [employer] date: Dictation date: EXAM: XR Lumbar Spine, 2 or 3 Views CLINICAL HISTORY: 88 years old and is Female; weakness and pain R leg on awakening TECHNIQUE: Frontal and lateral views of the lumbar spine. COMPARISON: No relevant prior studies available. FINDINGS: Limitations: None. Vertebrae: There is age indeterminant compression of the superior endplate of L2 with about 30% height loss. There is diffuse facet arthrosis and mild spondylosis. There is accentuated lordosis. Disc spaces: Mild disc narrowing L4-L5. Soft tissues: Unremarkable. Vasculature: Inferior vena cava filter present level of L2-L3. IMPRESSION: Age-indeterminate compression deformity of superior endplate of L2. Electronically signed by: Breanne Irwin MD 10/14/2018 8:36 AM CDT Lumbar Spine 3 Views Accession Number : [id number] Modality : CR Requested Proc. ID : 1 Patient : MIMI ARCHULETA Patient : Referring Physician : SHANNON MUÑOZ Date of Study : 07:56 Order Status : Report Available - ZZ Report exported on 08:52 -- Page 1 of 2 Lumbar Spine 3 Views Accession Number : [id number] Modality : CR Requested Proc. ID : 1 Patient : MIMI ARCHULETA Patient : Referring Physician : SHANNON MUÑOZ Date of Study : 07:56 Order Status : Report Available - ZZ Departure - Departure Clinical Impression: TIA (transient ischemic attack) Disposition: Admit Patient Condition: Good Departure Forms: ED Discharge - Pt. Copy, Patient Portal Self Enrollment Referrals: Jerry Locke MD [Primary Care Provider] - 1-2 Weeks Home Medications: Ambulatory Orders Amlodipine Besylate [Norvasc] 10 mg PO DAILY 06/22/14 Furosemide 40 mg PO BID 06/22/14 Metformin HCl 500 mg PO BID 06/22/14 Potassium Chloride [K-Tab] 10 meq PO BID 06/22/14 Warfarin Sodium 2 mg PO DAILY 06/22/14 Alendronate Sodium [Fosamax] 70 mg PO WKLY 10/14/18 Allopurinol 300 mg PO DAILY 10/14/18 Donepezil Hydrochloride [Donepezil HCl] 10 mg PO QPM 10/14/18 Duloxetine HCl 60 mg PO DAILY 10/14/18 Nitroglycerin 0.4 mg Tab [Nitrostat] 0.4 mg SL PRN PRN 10/14/18 Ranitidine HCl 150 mg PO DAILY 10/14/18 Rosuvastatin Calcium 20 mg PO DAILY 10/14/18 Sulfamethoxazole-Trimethoprim [Bactrim Ds 800-160 mg] 1 tablet PO BID 10/14/18 Decision To Admit - Decistion To Admit Decision to Admit Reason: Admit from ER Decision to Admit Date: 10/14/18 Decision to Admit Time: 09:21
[2018-10-14] MEDS ORDERED: amLODIPine BESYLATE 5 MG TAB PO ONE (08:07)
--- NOTE | 2018-10-14 08:38 | RAD ---
EXAM: XR Lumbar Spine, 2 or 3 Views CLINICAL HISTORY: 88 years old and is Female; weakness and pain R leg on awakening TECHNIQUE: Frontal and lateral views of the lumbar spine. COMPARISON: No relevant prior studies available. FINDINGS: Limitations: None. Vertebrae: There is age indeterminant compression of the superior endplate of L2 with about 30% height loss. There is diffuse facet arthrosis and mild spondylosis. There is accentuated lordosis. Disc spaces: Mild disc narrowing L4-L5. Soft tissues: Unremarkable. Vasculature: Inferior vena cava filter present level of L2-L3. IMPRESSION: Age-indeterminate compression deformity of superior endplate of L2. Electronically signed by: Breanne Irwin MD 10/14/2018 8:36 AM CDT
--- NOTE | 2018-10-14 08:47 | CT ---
EXAM: CT Head Without Intravenous Contrast CLINICAL HISTORY: 88 years old and is Female; weakness right leg on awakening TECHNIQUE: Axial computed tomography images of the head/brain without intravenous contrast. Sagittal and coronal reformatted images were created and reviewed. This CT exam was performed using one or more of the following dose reduction techniques: automated exposure control, adjustment of the mA and/or kV according to patient size, and/or use of iterative reconstruction technique. COMPARISON: No relevant prior studies available. FINDINGS: Limitations: None. Brain: There is age related cortical atrophy and periventricular white matter hypodensity most consistent with chronic small ischemic change. No acute infarct, hemorrhage or mass. Ventricles: Unremarkable. No ventriculomegaly. Bones/joints: Unremarkable. No acute fracture. Soft tissues: Unremarkable. Sinuses: Chronic maxillary, sphenoid and ethmoid sinus thickening. Mastoid air cells: Unremarkable as visualized. No mastoid effusion. IMPRESSION: No acute findings. Electronically signed by: Breanne Irwin MD 10/14/2018 8:46 AM CDT
--- NOTE | 2018-10-14 09:42 | HP ---
SUPERVISING PHYSICIAN: Rambo Yan M.D. CHIEF COMPLAINT: Right sided weakness. HISTORY OF PRESENT ILLNESS: This is an 88 year-old female patient who resides alone. About 6:00 AM this morning she called her son due to her inability to get out of bed. She said her right side would not work. When they got over there she had a difficult time getting out of bed. They called EMS. The only other issue she had overnight was she woke up once during the night and said a light was shining in her left eye and there was no light there. On admission to the Emergency Room, she did have a significant right sided weakness. She had a drift with her right hand. She could not hold it up. She does have a history of neuropathy but felt that this was different. There were no complaints of headache, vision changes, changes in sensation, difficulty speaking or altered level of consciousness. There was no chest pain or shortness of breath. Her vital signs initially with a temperature of 97.4, heart rate 76, blood pressure 169/106, respiratory rate 18, O2 sat 95%. She had not taken her morning Norvasc, so that was given in the E. R. and her blood pressure went down into 139/62. Initial lab showed a CBC that was unremarkable. She did have an elevated INR of 3.65. She is on Coumadin for atrial fibrillation and history of deep venous thrombosis and pulmonary embolism. Electrolytes are within normal limits with the exception of her potassium was slightly low at 3.3, chloride 97, glucose 171. Head CT showed no acute findings. While in the E. R., her right sided weakness did improve, but her right durability engineer continued to be weaker than her left durability engineer and her right leg was weaker than her left leg. Neurology Telemedicine was consulted and the physician agreed that she was not having an acute stroke. His only recommendations other than what had been completed was to do a neck CTA. The neck CTA was done and showed normal CT arteriogram of the neck with no hemodynamically significant stenosis identified. No occlusions/dissection or aneurysm noted. Will place the patient in observation. PAST MEDICAL HISTORY: 1. Atrial fibrillation. She was converted in 2009. 2. Diabetes mellitus type 2. 3. Hyperlipidemia. 4. Hypertension. 5. Osteoporosis. 6. Peripheral sensory neuropathy. 7. History of renal carcinoma with a partial right nephrectomy. 8. Gout. 9. Gastroesophageal reflux disease. 10. History of pulmonary embolism and deep venous thrombosis. She has a Suri filter. PAST SURGICAL HISTORY: 1. Left knee arthroscopy. 2. Left knee joint replacement. 3. Cholecystectomy. 4. Hernia repair. 5. Hysterectomy. 6. Right partial nephrectomy. 7. IVC [place] filter insertion. CURRENT MEDICATIONS: 1. Coumadin. 2. Rosuvastatin. 3. Metformin. 4. Aricept. 5. Allopurinol. 6. Cymbalta. 7. Neurontin. 8. Lasix. 9. Potassium chloride. 10. Fosamax. 11. Norvasc. 12. Colchicine p.r.n. 13. Bactrim. 14. Zantac. 15. Meclizine. ALLERGIES: NO KNOWN DRUG ALLERGIES. SOCIAL HISTORY: She is . She lives in [place]. She has 4 children. She denies any smoking, drinking or illicit drug use. REVIEW OF SYSTEMS: GENERAL: Negative for chills, fever or weight changes. HEENT: Negative for ear pain, vision changes, sore throat or sinus symptoms. RESPIRATORY: Negative for coughing, wheezing or shortness of breath. CARDIAC: Negative for chest pains, palpitations or tachycardia. GASTROINTESTINAL: Negative for abdominal pain, nausea, vomiting, diarrhea or constipation. GENITOURINARY: Negative for hematuria, dysuria or polyuria. MUSCULOSKELETAL: Positive for right sided muscle weakness. Negative for arthralgias. NEUROLOGIC: Positive for right sided weakness. Negative for seizures or headaches. PHYSICAL EXAMINATION: VITAL SIGNS: Temperature 97.5, heart rate 85, blood pressure 135/80, respiratory rate 18, O2 sat 97% on room air. GENERAL: This is a 89 year-old female patient lying in her hospital bed. She is in no acute distress. HEENT: Normocephalic and atraumatic. Pupils are equal and reactive. Oropharynx is clear. Tongue is midline. NECK: Supple without mass. RESPIRATORY: Essentially clear to auscultation bilaterally. CHEST: There is equal rise and fall of the chest with inspiration and expiration. CARDIOVASCULAR: Regular rate and rhythm. GASTROINTESTINAL: Abdomen is soft, nondistended, non-tender. Bowel sounds are positive. EXTREMITIES: No clubbing, cyanosis or edema. NEUROLOGIC: She is awake, alert and oriented times three. Cranial nerves II- XII are grossly intact. At the time of examination after admission to the floor, her hand crane follower are equal bilaterally. She has no drift. Right leg is very slightly weaker than her left leg, but she can lift both legs without any problems. LABORATORY: Labs and films are as per the history of present illness. ASSESSMENT: 1. Transient ischemic attack symptoms with right sided weakness. 2. History of recent urinary tract infection on Bactrim. 3. History of deep venous thrombosis and pulmonary embolism on Coumadin therapy. Has a Suri filter. Her initial INR was supratherapeutic at 3.65. 4. Old L2 compression fracture. 5. History of atrial fibrillation cardioverted in 2009. Now normal sinus rhythm. 6. History of hypertension. 7. History of gout on Allopurinol. 8. Peripheral neuropathy. 9. Diabetes mellitus type 2 on oral therapy. PLAN: We will admit the patient to the hospital. I have initiated the TIA/CVA protocol. We will do neuro checks. I will hold her Coumadin for right now. We will recheck her INR tomorrow and hopefully we can restart her Coumadin. Will continue her routine medicines along with her Bactrim. She will be on the ekg monitor. At this point, she is in normal sinus rhythm. I put her on sliding scale insulin with a.c. and h.s. blood sugar checks. I have also consulted Physical Therapy for tomorrow. Hopefully she can be discharged tomorrow or the next day. I have not started her on aspirin therapy as she is on Coumadin. We can followup with Dr. Locke to see if he would like her to continue her aspirin therapy. Will continue to monitor closely and follow as needed. #[id number] [facility]
--- NOTE | 2018-10-14 11:13 | CT ---
PROCEDURE: CT Angiography Neck With Intravenous Contrast CLINICAL INDICATION: The patient is 88 years old and is Female; poss small CVA/TIA TECHNIQUE: Axial computed tomographic angiography images of the neck with intravenous contrast using CT angiography protocol. Sagittal and coronal reformatted images were created and reviewed. Sagittal and coronal reformatted images were created and reviewed. This CT exam was performed using one or more of the following dose reduction techniques: automated exposure control, adjustment of the mA and/or kV according to patient size, and/or use of iterative reconstruction technique. MIP reconstructed images were created and reviewed. COMPARISON: No relevant prior studies available. FINDINGS: VASCULATURE: COMMON CAROTID : The proximal subclavian arteries, the innominate artery and the common carotid arteries are patent. No significant stenosis. No dissection or occlusion. INTERNAL CAROTID : Both internal carotid arteries are widely patent. Extracranial segment is patent with no significant stenosis. No dissection or occlusion. EXTERNAL CAROTID : The external carotid arteries are also patent. No occlusion. VERTEBRAL : Both vertebral arteries are patent in the neck and are codominant. No significant stenosis. No dissection or occlusion. OTHER VASCULATURE: There is a conventional branch pattern from the aortic arch. NECK: BONES/JOINTS: The cervical spine demonstrates spondylotic change. No acute fracture. SOFT TISSUES: Unremarkable as visualized. No mass. SINUSES: Minimal chronic mucoperiosteal thickening of the LEFT sphenoid sinus, LEFT maxillary sinus and middle RIGHT ethmoid air cells are noted. RETROPHARYNGEAL SPACE: There is no retropharyngeal soft tissue. SUBMANDIBULAR/PAROTID GLANDS: The deep and superficial lobes of the parotid glands are unremarkable. Submandibular glands are symmetric. THYROID: The thyroid gland is unremarkable. LUNG APICES: The lung apices are clear. OTHER FINDINGS: The mucosal surface of the aerodigestive tract is unremarkable. CAROTID STENOSIS REFERENCE USING NASCET CRITERIA: % ICA stenosis = (1 - narrowest ICA diameter/diameter of distal cervical ICA) x 100. Mild - <50% stenosis. Moderate - 50-69% stenosis. Severe - 70-94% stenosis. Near occlusion - 95-99% stenosis. Occluded - 100% stenosis. IMPRESSION: Normal CT arteriogram of the neck with no hemodynamically significant stenosis identified, no occlusion/dissection or aneurysm noted. Electronically signed by: Devaughn Menendez MD 10/14/2018 11:11 AM CDT
[2018-10-14] MEDS ORDERED: ACETAMINOPHEN 325 MG TAB PO PRN (11:52)
[2018-10-14] MEDS ORDERED: ONDANSETRON INJ 4 MG/2 ML VIAL IV PRN (11:52)
[2018-10-14] MEDS ORDERED: DEXTROSE 50% 25 GM/50 ML SYG IV PRN (11:56)
[2018-10-14] MEDS ORDERED: GLUCAGON INJ 1 MG VIAL SUBCU PRN (11:56)
[2018-10-14] MEDS ORDERED: KCL 20 MEQ/NS 1,000 ML IVS ONE (11:56)
[2018-10-14] MEDS ORDERED: IV SET AND CAP CHANGE INJ INJ SCH (12:00)
[2018-10-14] MEDS ORDERED: metFORMIN XR 500 MG TAB.ER.24 PO ONE (13:03)
[2018-10-14] MEDS ORDERED: FUROSEMIDE 40 MG TAB ONE (13:03)
[2018-10-14] MEDS ORDERED: POTASSIUM CHLORIDE 10 MEQ TAB PO ONE (13:03)
[2018-10-14] MEDS ORDERED: DONEPEZIL HCL 5 MG TAB ONE (13:03)
[2018-10-14] MEDS: ENOXAPARIN SODIUM 40 MG/0.4 ML SYG SUBCU SCH ×2 (13:09→13:21)
[2018-10-14] MEDS: SULFA/TRIMETH 800/160 (DS) TAB 1 EA TAB PO SCH ×2 (13:51→20:47)
[2018-10-14] MEDS: FUROSEMIDE 40 MG TAB PO SCH (16:26)
[2018-10-14] MEDS: POTASSIUM CHLORIDE 10 MEQ TAB PO SCH (16:26)
[2018-10-14] MEDS: metFORMIN HCL 500 MG TAB PO SCH (16:29)
[2018-10-14] MEDS: INSULIN LISPRO 100 UNITS/ML PEN SUBCU SCH ×2 (17:05→21:27)
[2018-10-14] MEDS ORDERED: DONEPEZIL HCL 5 MG TAB PO SCH (18:00)
[2018-10-14] MEDS: SODIUM CHLORIDE 0.9% (FLUSH) 10 ML SYG IV SCH (20:46)
[2018-10-14] MEDS ORDERED: ATORVASTATIN 20 MG TAB PO SCH (21:00)
[2018-10-15] MEDS ORDERED: PANTOPRAZOLE SODIUM IV 40 MG VIAL IV SCH (06:30)
[2018-10-15] MEDS ORDERED: PANTOPRAZOLE SODIUM TAB 40 MG PO SCH (06:30)
[2018-10-15] MEDS: INSULIN LISPRO 100 UNITS/ML PEN SUBCU SCH (07:37)
[2018-10-15] MEDS: POTASSIUM CHLORIDE 10 MEQ TAB PO SCH (07:39)
[2018-10-15] MEDS: metFORMIN HCL 500 MG TAB PO SCH (07:39)
[2018-10-15] MEDS ORDERED: amLODIPine BESYLATE 5 MG TAB PO SCH (09:00)
[2018-10-15] MEDS ORDERED: DULoxetine HCL 30 MG CAP PO SCH (09:00)
[2018-10-15] MEDS ORDERED: ALLOPURINOL 300 MG TAB PO SCH (09:00)
[2018-10-15] MEDS: FUROSEMIDE 40 MG TAB PO SCH (09:52)
[2018-10-15] MEDS: SODIUM CHLORIDE 0.9% (FLUSH) 10 ML SYG IV PRN ×2 (09:53→10:06)
[2018-10-15] MEDS: SULFA/TRIMETH 800/160 (DS) TAB 1 EA TAB PO SCH (09:53)
[2018-10-15 10:51] VITALS: BP 132/70; TEMP 97.3; O2SAT 97
[2018-10-15] MEDS: SODIUM CHLORIDE 0.9% (FLUSH) 10 ML SYG IV SCH (10:59)
[2018-10-15] MEDS ORDERED: ALLOPURINOL 300 MG TAB PO ONE (13:19)
[2018-10-15] MEDS ORDERED: DULoxetine HCL 30 MG CAP PO ONE (13:20)
[2018-10-15] MEDS ORDERED: metFORMIN XR 500 MG TAB.ER.24 PO ONE (13:21)
--- NOTE | 2018-10-16 15:02 | DS ---
SUPERVISING PHYSICIAN: Lesly Henriquez MD ADMISSION DIAGNOSIS: 1. Transient ischemic attack symptoms with right sided weakness. 2. History of recent urinary tract infection on Bactrim. 3. History of deep venous thrombosis and pulmonary embolism on Coumadin therapy. Has a Suri filter. Her initial INR was supratherapeutic at 3.65. 4. Old L2 compression fracture. 5. History of atrial fibrillation cardioverted in 2009. Now normal sinus rhythm. 6. History of hypertension. 7. History of gout on Allopurinol. 8. Peripheral neuropathy. 9. Diabetes mellitus type 2 on oral therapy. DISCHARGE DIAGNOSIS: 1. Transient ischemic attack symptoms with right sided weakness, resolved, with the patient on anticoagulation with Coumadin. 2. History of recent urinary tract infection on Bactrim. 3. History of deep venous thrombosis and pulmonary embolism on Coumadin therapy. She has a Suri filter. Her initial INR was supratherapeutic at 3.65. 4. Old L2 compression fracture. 5. History of atrial fibrillation cardioverted in 2009. Now normal sinus rhythm. 6. History of hypertension. 7. History of gout on Allopurinol. 8. Peripheral neuropathy. 9. Diabetes mellitus type 2 on oral therapy. REASON FOR HOSPITALIZATION: This is an 88 year-old female patient who resides alone. About 6:00 AM this morning she called her son due to her inability to get out of bed. She said her right side would not work. When they got over there she had a difficult time getting out of bed. They called EMS. The only other issue she had overnight was she woke up once during the night and said a light was shining in her left eye and there was no light there. On admission to the Emergency Room, she did have a significant right sided weakness. She had a drift with her right hand. She could not hold it up. She does have a history of neuropathy but felt that this was different. There were no complaints of headache, vision changes, changes in sensation, difficulty speaking or altered level of consciousness. There was no chest pain or shortness of breath. Her vital signs initially with a temperature of 97.4, heart rate 76, blood pressure 169/106, respiratory rate 18, O2 sat 95%. She had not taken her morning Norvasc, so that was given in the E. R. and her blood pressure went down into 139/62. Initial lab showed a CBC that was unremarkable. She did have an elevated INR of 3.65. She is on Coumadin for atrial fibrillation and history of deep venous thrombosis and pulmonary embolism. Electrolytes are within normal limits with the exception of her potassium was slightly low at 3.3, chloride 97, glucose 171. Head CT showed no acute findings. While in the E. R., her right sided weakness did improve, but her right line technician continued to be weaker than her left line technician and her right leg was weaker than her left leg. Neurology Telemedicine was consulted and the physician agreed that she was not having an acute stroke. His only recommendations other than what had been completed was to do a neck CTA. The neck CTA was done and showed normal CT arteriogram of the neck with no hemodynamically significant stenosis identified. No occlusions/dissection or aneurysm noted. The patient was placed in observation in stable condition. LABORATORY: White count 6,500 and at discharge was 7,500. Hemoglobin and hematocrit were stable at 13.2 and 39.5 at discharge respectively with platelet count 180,000. Differential was without a left shift. Coagulation studies showed INR 3.65 on admission. At discharge, it was 2.84. Chemistries showed a slightly low potassium at 3.3. At discharge, it was 3.8. At discharge, all other electrolytes were within normal limits. BUN 15, creatinine 1.15. Blood sugars ranged between 145 and 212. Liver functions were all within normal limits. Magnesium was slightly low at 1.6. Liver panel showed triglycerides 146, cholesterol 113, HDL 49, LDL 42. RADIOLOGY: CT of the head without contrast per radiologic interpretation showed no acute findings. She then had a lumbar spine x-ray and per radiologic interpretation showed an age-indeterminate compression fracture deformity of superior endplate at L2. She also had a CTA of the neck and per radiologic interpretation showed normal CT angiogram of the neck with no hemodynamically significant stenosis identified, no occlusions, dissections or aneurysms noted. Please see that report for full details. HOSPITAL COURSE: Ms. Danielle was admitted from the Emergency Room for TIA like symptoms with no residual affect. Prior to admission, her symptoms had essentially resolved. She was placed in observation overnight to monitor cardiac and neurologic status. She had no recurrence of symptoms. On the morning of discharge, she was clinically stable. All radiographic studies had been negative for any acute findings. She was already on Coumadin which was therapeutic at discharge and again was felt stable enough to continue with outpatient management. PLAN: Ms. Danielle was discharged on 10/15/18 with instructions to followup with Dr. Locke on 10/18/18 at 13:45. She was to resume her usual diet. Activities included to ambulate only with a walker as tolerated and as per physical therapy. She was to resume her home medications as previously instructed. She had physical therapy arranged through [facility]. She was instructed to return to the hospital if she had any worsening or concerning symptoms. No new medications were added to her medication regimen at discharge. MEDICATIONS AT DISCHARGE: 1. Nitrostat 0.4 mg as needed. 2. Duloxetine 60 mg daily. 3. Allopurinol 300 mg daily. 4. Donepezil 10 mg daily. 5. Lovastatin 20 mg daily. 6. Ranitidine 150 mg daily. 7. Warfarin 2 mg daily. 8. Bactrim 1 tablet b.i.d. 9. Lasix 40 mg b.i.d. 10. Norvasc 10 mg daily. 11. Metformin 500 mg b.i.d. 12. Fosamax 70 mg weekly. 13. Potassium chloride 10 mEq b.i.d. DISCHARGE ASSESSMENT: GENERAL: The patient was without any neurologic deficits, she was alert, in no acute distress. CHEST: Lungs clear to auscultation. HEART: Regular rate and rhythm. ABDOMEN: Soft, nontender. Positive bowel sounds. NEUROLOGIC: Alert and oriented x3. No motor deficits were noted. Cranial nerves II-XII are grossly intact. DISPOSITION: The patient was discharged home to care of family members. CONDITION AT DISCHARGE: Stable and improving. #[id number] [facility]
== END 2018-10-15 11:30 | disposition home health service (06) ==
LOC: ER 07:46 → MS 09:41
PROVIDERS: ADMIT Nurse Practitioner Acute Care; ATTEND Nurse Practitioner Family
DX: G45.9 Transient cerebral ischemic attack, unspecified (principal); G81.91 Hemiplegia, unspecified affecting right dominant side; E87.6 Hypokalemia; E11.42 Type 2 diabetes mellitus with diabetic polyneuropathy; M48.56XA Collapsed vertebra, not elsewhere classified, lumbar region, initial encounter for fracture; M10.9 Gout, unspecified; I10 Essential (primary) hypertension; E78.5 Hyperlipidemia, unspecified; M81.0 Age-related osteoporosis without current pathological fracture; K21.9 Gastro-esophageal reflux disease without esophagitis; Z79.01 Long term (current) use of anticoagulants; Z79.84 Long term (current) use of oral hypoglycemic drugs; Z79.899 Other long term (current) drug therapy; Z87.440 Personal history of urinary (tract) infections; Z86.718 Personal history of other venous thrombosis and embolism; Z86.711 Personal history of pulmonary embolism; Z96.652 Presence of left artificial knee joint
CPT/HCPCS: 96366 ×2; 96365; 96372 ×2; J3480; J1815; 82553; 80053 ×2; 82948 ×4; 80061; 36415 ×2; 85025 ×2; 82550; 83735; 85730; 85610 ×2; 84484; 36416 ×4; 72100; 70450; 70498; 94760 ×4; 99285; G0378

== ENCOUNTER 2018-10-20 17:12 | Observation (INO) | payer MEDICARE, OTHER ==
--- NOTE | 2018-10-20 17:51 | RAD ---
EXAM DESCRIPTION: Chest,1 View CLINICAL HISTORY: 88 years Female fever, cough COMPARISON: September 16, 2016. TECHNIQUE: Cardiac silhouette is mildly enlarged. Central vessels are moderately increased. No infiltrates or effusions seen. Mild chronic change lung [place] bilaterally. No consolidation. No pneumothorax. FINDINGS: Enlarged heart with moderate central congestion. No infiltrate seen. IMPRESSION: Electronically signed by: Lisha Moran MD 10/20/2018 5:49 PM CDT
--- NOTE | 2018-10-20 18:09 | ED.PDOC ---
History of Present Illness - General Chief Complaint: General Stated Complaint: Cough and nausea x 2 days Time Seen by Provider: 10/20/18 17:53 Source: patient, family Exam Limitations: no limitations - History of Present Illness Initial Comments: Patient presents with clear nasal exudate and a cough productive of clear sputum. She says that it started yesterday but got worse today. She was recently put on home oxygen for CHF. She also says that she has a history of atrial fibrillation. No other complaints. Timing/Duration: 24 hours Severity: moderate Improving Factors: nothing Worsening Factors: nothing Associated Symptoms: other - as in HPI Allergies/Adverse Reactions: Allergies NO KNOWN ALLERGY Allergy (Verified 10/14/18 11:36) Home Medications: Ambulatory Orders Amlodipine Besylate [Norvasc] 10 mg PO DAILY 06/22/14 Furosemide 40 mg PO BID 06/22/14 Metformin HCl 500 mg PO BID 06/22/14 Potassium Chloride [K-Tab] 10 meq PO BID 06/22/14 Warfarin Sodium 2 mg PO DAILY 06/22/14 Alendronate Sodium [Fosamax] 70 mg PO WKLY 10/14/18 Allopurinol 300 mg PO DAILY 10/14/18 Donepezil Hydrochloride [Donepezil HCl] 10 mg PO QPM 10/14/18 Duloxetine HCl 60 mg PO DAILY 10/14/18 Nitroglycerin 0.4 mg Tab [Nitrostat] 0.4 mg SL PRN PRN 10/14/18 Ranitidine HCl 150 mg PO DAILY 10/14/18 Rosuvastatin Calcium 20 mg PO DAILY 10/14/18 Sulfamethoxazole-Trimethoprim [Bactrim Ds 800-160 mg] 1 tablet PO BID 10/14/18 Review of Systems - Review of Systems Constitutional: States: no symptoms reported EENTM: States: no symptoms reported Respiratory: States: see HPI Cardiology: States: no symptoms reported Gastrointestinal/Abdominal: States: no symptoms reported Genitourinary: States: no symptoms reported Musculoskeletal: States: no symptoms reported Skin: States: no symptoms reported Neurological: States: no symptoms reported Endocrine: States: no symptoms reported Hematologic/Lymphatic: States: no symptoms reported Past Medical History (General) - Patient Medical History Hx Seizures: No Hx Stroke: No Hx Dementia: No Hx Asthma: No Hx of COPD: Yes Hx Cardiac Disorders: Yes - A-Fib Hx Congestive Heart Failure: Yes Hx Pacemaker: No Hx Hypertension: Yes Hx Thyroid Disease: No Hx Diabetes: Yes Hx Gastroesophageal Reflux: No Hx Renal Disease: Yes - 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 Hx Cancer: Yes - R kidney Hx of HIV: No Hx Hepatitis C: No Hx MRSA: No Surgical History: other - Vaccination History Hx Tetanus, Diphtheria Vaccination: Yes Hx Influenza Vaccination: Yes - 2018 Hx Pneumococcal Vaccination: Yes - Social History Hx Tobacco Use: No Hx Chewing Tobacco Use: No Hx Alcohol Use: No Hx Substance Use: No Hx Substance Use Treatment: No Hx Depression: No Hx Physical Abuse: No Hx Emotional Abuse: No Hx Suspected Abuse: No - Activities of Daily Living [facility]isted Living (if applicable):: [facility] - Female History Patient : No Family Medical History - Family History Mother Family History: Unknown Hx Family Asthma: No Hx Cardiac Disease: Yes - mom Hx Family Diabetes: Yes - dad Hx Family Cancer: Yes - lip -son Hx Family;Other: DVT/PE -dad Physical Exam - Physical Exam General Appearance: Alert Eye Exam: bilateral normal Ears, Nose, Throat: normal ENT inspection Neck: non-tender, full range of motion, supple Respiratory: lungs clear, normal breath sounds Cardiovascular/Chest: normal peripheral pulses, regular rate, rhythm Gastrointestinal/Abdominal: normal bowel sounds, non tender, soft Back Exam: normal inspection, no CVA tenderness Extremity: normal range of motion, non-tender, pedal edema - 1+ bipedal Neurologic: no motor/sensory deficits, alert, normal mood/affect, oriented x 3 Skin Exam: normal color Lymphatic: no adenopathy Progress - Progress Progress: 10/20/18 20:10 Laboratory Tests 10/20/18 10/20/18 10/20/18 17:35 17:35 17:35 WBC 5.8 RBC 4.28 Hgb 13.4 Hct 40.2 MCV 93.9 MCH 31.3 H MCHC 33.3 RDW 14.2 Plt Count 197 MPV 8.7 Absolute Neuts (auto) 4.50 Absolute Lymphs (auto) 0.70 L Absolute Monos (auto) 0.50 Absolute Eos (auto) 0.20 Absolute Basos (auto) 0.00 Neutrophils % 76.8 Lymphocytes % 11.9 L Monocytes % 7.9 Eosinophils % 2.8 Basophils % 0.6 PT INR PTT (SP) Sodium 137 Potassium 3.3 L Chloride 99 L Carbon Dioxide 25 Anion Gap 16.3 BUN 17 Creatinine 1.05 BUN/Creatinine Ratio 16.2 Random Glucose 200 H Serum Osmolality 281.0 Lactic Acid 2.6 H* Calcium 9.1 Magnesium Total Bilirubin 0.8 AST 31 ALT 29 Alkaline Phosphatase 90 Creatine Kinase CK-MB (CK-2) CK-MB (CK-2) % Troponin I B-Natriuretic Peptide Serum Total Protein 6.8 Albumin 3.6 Globulin 3.2 Albumin/Globulin Ratio 1.1 Group A Strep Rapid 10/20/18 10/20/18 10/20/18 18:05 18:06 18:06 WBC RBC Hgb Hct MCV MCH MCHC RDW Plt Count MPV Absolute Neuts (auto) Absolute Lymphs (auto) Absolute Monos (auto) Absolute Eos (auto) Absolute Basos (auto) Neutrophils % Lymphocytes % Monocytes % Eosinophils % Basophils % PT 31.4 H* INR 3.18 H PTT (SP) 41.4 H Sodium Potassium Chloride Carbon Dioxide Anion Gap BUN Creatinine BUN/Creatinine Ratio Random Glucose Serum Osmolality Lactic Acid Calcium Magnesium 1.6 L Total Bilirubin AST ALT Alkaline Phosphatase Creatine Kinase 47 CK-MB (CK-2) 2.3 CK-MB (CK-2) % Not Reportable Troponin I 0.02 B-Natriuretic Peptide 115.0 H Serum Total Protein Albumin Globulin Albumin/Globulin Ratio Group A Strep Rapid 10/20/18 19:28 WBC RBC Hgb Hct MCV MCH MCHC RDW Plt Count MPV Absolute Neuts (auto) Absolute Lymphs (auto) Absolute Monos (auto) Absolute Eos (auto) Absolute Basos (auto) Neutrophils % Lymphocytes % Monocytes % Eosinophils % Basophils % PT INR PTT (SP) Sodium Potassium Chloride Carbon Dioxide Anion Gap BUN Creatinine BUN/Creatinine Ratio Random Glucose Serum Osmolality Lactic Acid Calcium Magnesium Total Bilirubin AST ALT Alkaline Phosphatase Creatine Kinase CK-MB (CK-2) CK-MB (CK-2) % Troponin I B-Natriuretic Peptide Serum Total Protein Albumin Globulin Albumin/Globulin Ratio Group A Strep Rapid Positive CXR unremarkable. Rapid strep positive. Lactic acid 2.6. No other signs of end organ damage. Gave Bicillin LA 1.2 million units x one in the E.D. and started NS @ 100 ml/hour. Admitted for observation by Mann Javed. Departure - Departure Clinical Impression: URI (upper respiratory infection), Lactic acidosis Disposition: Admit Patient Condition: Good Departure Forms: ED Discharge - Pt. Copy, Patient Portal Self Enrollment Diet: resume usual diet Activity: as per physical therapy Referrals: Jerry Locke MD [Primary Care Provider] - 1-2 Weeks Home Medications: Ambulatory Orders Amlodipine Besylate [Norvasc] 10 mg PO DAILY 06/22/14 Furosemide 40 mg PO BID 06/22/14 Metformin HCl 500 mg PO BID 06/22/14 Potassium Chloride [K-Tab] 10 meq PO BID 06/22/14 Warfarin Sodium 2 mg PO DAILY 06/22/14 Alendronate Sodium [Fosamax] 70 mg PO WKLY 10/14/18 Allopurinol 300 mg PO DAILY 10/14/18 Donepezil Hydrochloride [Donepezil HCl] 10 mg PO QPM 10/14/18 Duloxetine HCl 60 mg PO DAILY 10/14/18 Nitroglycerin 0.4 mg Tab [Nitrostat] 0.4 mg SL PRN PRN 10/14/18 Ranitidine HCl 150 mg PO DAILY 10/14/18 Rosuvastatin Calcium 20 mg PO DAILY 10/14/18 Sulfamethoxazole-Trimethoprim [Bactrim Ds 800-160 mg] 1 tablet PO BID 10/14/18
[2018-10-20] MEDS ORDERED: SODIUM CHLORIDE 0.9% 1000ML 1,000 ML IVS PRN (20:02)
[2018-10-20] MEDS ORDERED: PENICILLIN BENZATHINE 1.2 MU 1.2 MU/2 ML SYG IM ONE (20:10)
[2018-10-20] MEDS ORDERED: SODIUM CHLORIDE 0.9% (FLUSH) 10 ML SYG IV PRN (22:12)
[2018-10-20] MEDS ORDERED: ONDANSETRON INJ 4 MG/2 ML VIAL IV PRN (22:12)
[2018-10-20] MEDS ORDERED: ALUM & MAG HYDROX-SIMETHICONE 30 ML UD PO PRN (22:12)
[2018-10-20] MEDS ORDERED: ACETAMINOPHEN 325 MG TAB PO PRN (22:12)
[2018-10-20] MEDS ORDERED: MAGNESIUM HYDROXIDE 30 ML UD PO PRN (22:12)
[2018-10-20] MEDS ORDERED: DEXTROSE 50% 25 GM/50 ML SYG IV PRN (22:22)
[2018-10-20] MEDS ORDERED: GLUCAGON INJ 1 MG VIAL SUBCU PRN (22:22)
[2018-10-20] MEDS ORDERED: MAGNESIUM SULFATE PREMIX 2GM 2 GM in PREMIX BAG 1 BAG IVPB ONE (22:30)
[2018-10-20] MEDS ORDERED: IV SET AND CAP CHANGE INJ INJ SCH (22:30)
[2018-10-20] MEDS ORDERED: KCL 20 MEQ/NS 1,000 ML IVS PRN (22:31)
[2018-10-20] MEDS ORDERED: MAGNESIUM SULFATE PREMIX 2GM 50 ML IVPB ONE (23:09)
[2018-10-20] MEDS ORDERED: NON-FORMULARY MEDICATION 1 EA MIS (Donepezil Hydrochloride [Donepezil Hcl] 10 MG) PO SCH (23:10)
[2018-10-20] MEDS ORDERED: DONEPEZIL HCL 5 MG TAB ONE (23:17)
[2018-10-20] MEDS ORDERED: metFORMIN HCL 500 MG TAB PO SCH (23:30)
--- NOTE | 2018-10-21 06:22 | RAD ---
EXAM: XR Chest, 2 Views CLINICAL HISTORY: The patient is 88 years old and is Female; sob TECHNIQUE: Frontal and lateral views of the chest. COMPARISON: Chest radiograph October 20, 2018. FINDINGS: LUNGS: Unremarkable. No consolidation. PLEURAL SPACE: Unremarkable. No pneumothorax. HEART: The cardiac silhouette is enlarged. MEDIASTINUM: Unremarkable. BONES/JOINTS: Unremarkable. VASCULATURE: Prominence of central vasculature is noted in stable. IMPRESSION: Cardiomegaly with mild venous congestion. Electronically signed by: Shellie Sierra MD 10/21/2018 6:19 AM CDT
[2018-10-21 06:23] VITALS: BP 131/76; TEMP 97.1; O2SAT 96
[2018-10-21] MEDS ORDERED: INSULIN, REG.(HUMAN) 100 U/ML VIAL ONE (07:30)
[2018-10-21] MEDS: INSULIN LISPRO 100 UNITS/ML PEN SUBCU SCH ×2 (07:32→11:50)
[2018-10-21] MEDS: POTASSIUM CHLORIDE 10 MEQ TAB PO SCH ×2 (07:41→13:15)
[2018-10-21] MEDS ORDERED: SODIUM CHLORIDE 0.9% (FLUSH) 10 ML SYG IV ONE (08:46)
[2018-10-21] MEDS ORDERED: amLODIPine BESYLATE 5 MG TAB PO SCH (09:00)
[2018-10-21] MEDS ORDERED: SODIUM CHLORIDE 0.9% (FLUSH) 10 ML SYG IV SCH (09:00)
[2018-10-21] MEDS ORDERED: NYSTATIN POWDER 15GM BTTL TOP SCH (09:00)
[2018-10-21] MEDS ORDERED: ALLOPURINOL 300 MG TAB PO SCH (09:00)
[2018-10-21] MEDS ORDERED: DULoxetine HCL 30 MG CAP PO SCH (09:00)
[2018-10-21] MEDS ORDERED: metFORMIN HCL 500 MG TAB PO SCH (09:00)
[2018-10-21] MEDS ORDERED: FUROSEMIDE 40 MG TAB PO SCH (12:00)
--- NOTE | 2018-10-21 13:54 | SSS ---
SUPERVISING PHYSICIAN: Mansoor Henriquez M.D. HISTORY OF PRESENT ILLNESS: Ms. Danielle is an 88 year-old female patient that presented to the Emergency Room last night complaining of clear nasal congestion and a mild productive cough. She noted that the symptoms started the day before yesterday and did worsen on day of admission. She does wear oxygen at home as well as has a history of atrial fibrillation. She had been having a sore throat. She noted that she felt a little bit short of breath and did not want to interrupt her family's evening, so she tried to call 911 to go to the hospital for evaluation. She was unable to get assistance via 911, so she then called her son who brought her to the Emergency Room for evaluation. Workup in the E. R. showed she had a normal white count at 5,800 and no left shift. Chemistries showed a potassium of 3.3. Liver functions all within normal limits. BUN 17, creatinine 1.05, slightly elevated lactic acid at 2.6. She did have an INR of 3.18 but takes Coumadin. Rapid Strep screen was positive. She was given an IM dose of Bicillin. E. R. physician, Dr. Mejia, requested the patient be placed in observation for slow fluid replacement given that she did have a slightly elevated lactic acid with concerns for possibly some mild dehydration and given the positive Strep screen. She was placed in observation in stable condition. PAST MEDICAL HISTORY: 1. Atrial fibrillation in sinus rhythm converted in 2009. 2. Diabetes mellitus type 2. 3. Hyperlipidemia. 4. Hypertension. 5. Osteoporosis. 6. Peripheral sensory neuropathy. 7. History of renal carcinoma with a partial right nephrectomy. 8. Gout. 9. Gastroesophageal reflux disease. 10. 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 PAST SURGICAL HISTORY: 1. Left knee arthroscopy. 2. Left knee joint replacement. 3. Cholecystectomy. 4. Hernia repair. 5. Hysterectomy. 6. Partial nephrectomy, right. 7. IVC Tioga filter insertion. CURRENT MEDICATIONS: 1. Warfarin 2 mg at bedtime. 2. Donepezil 10 mg at bedtime. 3. Lovastatin 20 mg daily. 4. Amlodipine 10 mg daily. 5. Ranitidine 150 mg at bedtime. 6. Nitrostat 0.4 mg as needed. 7. Potassium chloride 10 mEq twice daily. 8. Lasix 40 mg twice daily. 9. Allopurinol 300 mg daily. 10. Duloxetine 60 mg daily. 11. Metformin 500 mg b.i.d. 12. Tessalon Perles. ALLERGIES: NO KNOWN DRUG ALLERGIES. FAMILY HISTORY: Noncontributory. SOCIAL HISTORY: The patient is . She lives in [place] by herself. She has 4 children. She denies smoking, drinking or using any illicit drugs. REVIEW OF SYSTEMS: Negative for any chills, fevers, unintentional weight loss. HEENT: Positive for nasal congestion, sore throat. Negative for ear aches, vision changes or sinus congestion. RESPIRATORY: Positive for coughing. Negative for any wheezing. She is O2 dependent. CARDIOVASCULAR: Negative for chest pains, palpitations or tachycardia. GASTROINTESTINAL: Negative for abdominal pains, nausea, vomiting, diarrhea or constipation. GENITOURINARY: Negative for hematuria, polyuria or dysuria. MUSCULOSKELETAL: Negative for arthralgias. NEUROLOGIC: Negative for seizures, ataxia, headaches, vision changes. PHYSICAL EXAMINATION: VITAL SIGNS: Temperature 97.1, pulse 79, blood pressure 131/76, respirations 18, satting 96% on nasal cannula at 2 liters. She is satting 84% on room air but is O2 dependent. GENERAL: Ms. Dnaielle is an 89 year-old female patient that appears to be younger than her stated age in no acute distress. She is well hydrated and well nourished. HEENT: Tympanic membranes are clear bilaterally. Oropharynx was mild erythematous. No exudate. Oral mucosa was moist, pink without any lesions. NECK: Full range of motion, supple, non-tender. No jugular venous distention noted. CHEST: Lungs are clear to auscultation without any rhonchi, wheezing or rales. CARDIOVASCULAR: Regular rate and rhythm without appreciable murmurs, gallops, or rubs. ABDOMEN: Obese but soft, non-tender. Positive bowel sounds. EXTREMITIES: Trace of edema bilaterally. No clubbing or cyanosis. NEUROLOGIC: Cranial nerves II-XII are grossly intact. Facial features were symmetrical. Extraocular movements are within normal limits. There is no notable nystagmus. She is alert and oriented times three. SKIN: Warm, pink and dry. LYMPHATICS: Without any adenopathies. LABORATORY: White count shows to be normal at 5,800 without a left shift. Hemoglobin 13.4, hematocrit 40.2, platelet count 197,000. Coagulation studies showed an INR of 3.18. Chemistries showed potassium 3.3, BUN 17, creatinine 1.05, lactic acid 2.6, calcium 9.1, magnesium was low at 1.6. Liver function are all within normal limits. Troponin 0.02. BNP was slightly elevated at 115. Labs on discharge showed potassium 3.5, magnesium is normal at 2.2, BUN17, creatinine 0.79. Urinalysis showed just 250 of glucose, moderate amount of blood with microscopic revealed 5 to 10 RBCs, no epithelials, no WBCs, 3+ bacteria. Rapid Group A Strep was negative. Influenza A and B by PCR was negative. RADIOLOGY: Chest x-ray on admission showed some moderate central congestion with enlarged heart, but no infiltrate seen. Repeat chest x-ray prior to discharge showed cardiomegaly with mild venous congestion. ADMISSION DIAGNOSIS: 1. Acute Streptococcal pharyngitis receiving Bicillin showing to be without any complications. 2. Mild electrolyte imbalance with hypokalemia and hypomagnesemia returning to baseline levels with replacement therapy. 3. History of atrial fibrillation which converts to sinus rhythm. 4. History of deep venous thrombosis and pulmonary emboli on Coumadin and with a Tioga filter with INR showing to be therapeutic. 5. History of hypertension, stable. 6. History of gout on Allopurinol. 7. Peripheral neuropathy. 8. Diabetes mellitus type 2 on oral therapy. DISCHARGE DIAGNOSIS: 1. Acute Streptococcal pharyngitis receiving Bicillin showing to be without any complications. 2. Mild electrolyte imbalance with hypokalemia and hypomagnesemia returning to baseline levels with replacement therapy. 3. History of atrial fibrillation which converts to sinus rhythm. 4. History of deep venous thrombosis and pulmonary emboli on Coumadin and with a Tioga filter with INR showing to be therapeutic. 5. History of hypertension, stable. 6. History of gout on Allopurinol. 7. Peripheral neuropathy. 8. Diabetes mellitus type 2 on oral therapy. HOSPITAL COURSE: Ms. Danielle was admitted from the E. R. for close observation with some mild dehydration and an acute Streptococcal pharyngitis. She was given Bicillin in the E. R. She was given fluids and showed good response to treatment. Had normalization of her lactic acid level on assessment, on the morning of discharge was found clinically stable enough to continue with outpatient management. PLAN: Ms. Danielle was initially placed in observation overnight and given some slow rehydration fluids. She had no recurrence of symptoms. She does wear oxygen and has shortness of breath associated with oxygen therapy. She was treated with Bicillin and low fluids. She was showing clinical improvement and was found to be stable enough to continue with outpatient management. She was to followup with Dr. Locke in the following week or sooner if needed. Diet was diabetic diet as tolerated. Condition on discharge was stable and improved. DISPOSITION: The patient was discharged to the care of family members. #[id number] [facility]
[2018-10-21] MEDS ORDERED: ATORVASTATIN 20 MG TAB PO SCH (21:00)
[2018-10-21] MEDS ORDERED: DONEPEZIL HCL 5 MG TAB PO SCH (21:00)
== END 2018-10-21 13:10 | disposition home or self-care (01) ==
LOC: ER 17:12 → MS 21:08
PROVIDERS: ADMIT Nurse Practitioner Family; ATTEND Nurse Practitioner Family
DX: J02.0 Streptococcal pharyngitis (principal); E87.6 Hypokalemia; E83.42 Hypomagnesemia; E87.8 Other disorders of electrolyte and fluid balance, not elsewhere classified; E86.0 Dehydration; E87.2 Acidosis; I48.91 Unspecified atrial fibrillation; I11.0 Hypertensive heart disease with heart failure; I50.9 Heart failure, unspecified; M10.9 Gout, unspecified; E11.42 Type 2 diabetes mellitus with diabetic polyneuropathy; E78.5 Hyperlipidemia, unspecified; J44.9 Chronic obstructive pulmonary disease, unspecified; M81.0 Age-related osteoporosis without current pathological fracture; K21.9 Gastro-esophageal reflux disease without esophagitis; Z99.81 Dependence on supplemental oxygen; Z79.84 Long term (current) use of oral hypoglycemic drugs; Z79.01 Long term (current) use of anticoagulants; Z79.899 Other long term (current) drug therapy; Z86.718 Personal history of other venous thrombosis and embolism; Z86.711 Personal history of pulmonary embolism; Z85.528 Personal history of other malignant neoplasm of kidney; Z90.5 Acquired absence of kidney; Z96.652 Presence of left artificial knee joint
CPT/HCPCS: 96365; 96375; 96372 ×2; J0561; J7030; J3475; J3480; J1815; 80048; 82553; 80053; 82948; 87880; 36415; 81001; 85025; 82550; 83735 ×2; 85730; 85610; 84484; 83880; 36416; 83605 ×2; 71045; 71046; 99285; 93005; G0378; 87502

== ENCOUNTER → 2018-11-27 | Outpatient (CLI) | payer MEDICARE, OTHER | LOC: YCHH 09:26 | PROVIDERS: ATTEND Family Medicine | DX: E11.21 Type 2 diabetes mellitus with diabetic nephropathy (principal); I10 Essential (primary) hypertension ==

== ENCOUNTER 2018-11-30 | Emergency (ER) | payer MEDICARE, OTHER | END 2018-11-30 15:18 | disposition still patient (30) | CPT/HCPCS: 36415; 71045; 80048; 81001; 82550; 82553; 84484; 85025; 85610; 85730; 87077; 87086; 87186; 93005; J1940 ==

== ENCOUNTER 2019-01-01 09:53 | Emergency (ER) | payer MEDICARE, OTHER ==
[2019-01-01] MEDS ORDERED: SODIUM CHLORIDE 0.9% (FLUSH) 10 ML SYG IV PRN (10:12)
[2019-01-01] MEDS ORDERED: FUROSEMIDE INJ 40 MG/4 ML VIAL IV ONE (11:35)
--- NOTE | 2019-01-01 11:44 | RAD ---
EXAM DESCRIPTION: Chest,1 View CLINICAL HISTORY: Increasing shortness of breath, BLE, H/O CHF. COMPARISON: Chest radiograph dated November 30, 2018 TECHNIQUE: Single upright portable frontal view the chest FINDINGS: Calcific atherosclerosis and tortuosity of the thoracic aorta. Cardiac silhouette shows borderline cardiomegaly. Pulmonary vascularity is within normal limits. Lungs show no confluent infiltrates. No pleural effusion. No pneumothorax. No acute osseous abnormality. Degenerative changes bilateral shoulders. Included upper abdomen shows no acute abnormalities. IMPRESSION: 1. Cardiomegaly without congestive heart failure. 2. Lungs show no confluent infiltrates. 3. Chronic findings as above. Electronically signed by: Anurag Ocasio MD 01/01/2019 11:42 AM CDT
--- NOTE | 2019-01-01 12:59 | ED.PDOC ---
History of Present Illness - General Chief Complaint: Cardiovascular Problem Stated Complaint: BLE swelling, dizziness, SOB Time Seen by Provider: 01/01/19 10:09 Source: patient, family Exam Limitations: no limitations - History of Present Illness Initial Comments: 1 WK OF WORSENING BLE EDEMA, INCR SOB, MILD LIGHT HEADEDNESS, 10 LB WK GAIN. NURSE NOTICED BP 234/90 THUS SENT TO ER. H/O SIMILAR FLUID VOLUME OVERLOAD FROM CHF, DM, HTN, AFIB (ON COUMADIN), IVC FILTER FOR H/O DVT. Timing/Duration: 1 week Severity: moderate Improving Factors: nothing Worsening Factors: nothing Associated Symptoms: shortness of breath Allergies/Adverse Reactions: Allergies NO KNOWN ALLERGY Allergy (Verified 10/21/18 04:50) Home Medications: Ambulatory Orders Amlodipine Besylate [Norvasc] 10 mg PO DAILY 06/22/14 Furosemide 40 mg PO 0730,1200 06/22/14 Metformin HCl [Metformin Hydrochloride] 500 mg PO BID 06/22/14 Potassium Chloride [K-Tab] 10 meq PO 0730,1200 06/22/14 Warfarin Sodium 2 mg PO BEDTIME 06/22/14 Allopurinol 300 mg PO DAILY 10/14/18 Donepezil Hydrochloride [Donepezil HCl] 10 mg PO BEDTIME 10/14/18 Duloxetine HCl 60 mg PO DAILY 10/14/18 Nitroglycerin 0.4 mg Tab [Nitrostat] 0.4 mg SL PRN PRN 10/14/18 Ranitidine HCl 150 mg PO BEDTIME 10/14/18 Mirabegron [Myrbetriq] 50 mg PO DAILY 11/30/18 Colchicine 0.6 mg PO BID PRN 01/01/19 Gabapentin [Neurontin] 900 mg PO Q6H PRN 01/01/19 Meclizine HCl [Meclizine] 25 mg PO TID PRN 01/01/19 Review of Systems - Review of Systems Constitutional: States: weakness. Denies: chills, fever EENTM: States: no symptoms reported Respiratory: States: short of breath. Denies: cough, wheezing Cardiology: Denies: chest pain, palpitations Gastrointestinal/Abdominal: States: no symptoms reported Genitourinary: States: no symptoms reported Musculoskeletal: Denies: back pain, joint pain, neck pain Skin: Denies: change in color, rash Neurological: Denies: headache, tingling Endocrine: Denies: increased hunger, increased thirst, increased urine Hematologic/Lymphatic: States: no symptoms reported All other Systems: Reviewed and Negative Past Medical History (General) - Patient Medical History Hx Seizures: No Hx Stroke: No Hx Dementia: No Hx Asthma: No Hx of COPD: Yes Hx Cardiac Disorders: Yes - A-Fib; DVT's Hx Congestive Heart Failure: Yes Hx Pacemaker: No Hx Hypertension: Yes Hx Thyroid Disease: No Hx Diabetes: Yes Hx Gastroesophageal Reflux: Yes Hx Renal Disease: Yes - 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 Hx Cancer: Yes - R kidney Hx of HIV: No Hx Hepatitis C: No Hx MRSA: No Surgical History: cholecystectomy - Vaccination History Hx Tetanus, Diphtheria Vaccination: Yes Hx Influenza Vaccination: Yes - 2018 Hx Pneumococcal Vaccination: Yes - Social History Hx Tobacco Use: No Hx Chewing Tobacco Use: No Hx Alcohol Use: No Hx Substance Use: No Hx Substance Use Treatment: No Hx Depression: No Hx Physical Abuse: No Hx Emotional Abuse: No Hx Suspected Abuse: No - Female History Patient : No Family Medical History - Family History Mother Family History: Unknown Hx Family Asthma: No Hx Cardiac Disease: Yes - mom Hx Family Diabetes: Yes - dad Hx Family Cancer: Yes - lip -son Hx Family;Other: DVT/PE -dad Physical Exam - Physical Exam General Appearance: Alert, No apparent distress Eye Exam: bilateral normal Ears, Nose, Throat: hearing grossly normal, normal ENT inspection Neck: non-tender, full range of motion Respiratory: chest non-tender, lungs clear, normal breath sounds, no respiratory distress, no accessory muscle use Cardiovascular/Chest: no edema, no gallop, no JVD, no murmur Peripheral Pulses: radial,right: 2+, radial,left: 2+, dorsalis pedis,right: 1+, dorsalis pedis,left: 1+, posterior tibialis,right: 1+, posterior tibialis,left: 1+ Gastrointestinal/Abdominal: normal bowel sounds, non tender Back Exam: normal inspection, no CVA tenderness Extremity: normal range of motion, pedal edema, swelling Neurologic: no motor/sensory deficits, alert, normal mood/affect Skin Exam: normal color, warm/dry Lymphatic: no adenopathy Progress - Progress Progress: 01/01/19 13:24 BLE ACUTE ON CHRONIC, WORSE THAN BASELINE BUT NO CHF EXACERBATION FOR WHICH SHE WOULD NEED ADMISSION (CXR CLEAR, BNP ONLY 153, NO JVD. SATS 97% ON RA, NO LABORED BREATHING). I GAVE LASIX 40 MG IV X 1 (PT USUALLY TAKES 40 MG PO BID). SAFE FOR DC TO ASSISTED LIVING. PLAN IS TO DOUBLE UP HER LASIX X 3 D THEN D/U W/ PCP ON MONDAY. EKG SHOWS KNOWN AFIB (RATE CONTROLED AT 72, INR APPROPRIATELY 2.2 ON COUMADIN). CBC - GLUC 316. PT AND FAMILY STATE IS USUALLY 150'S BUT PT HAD CUPCAKE PRIOR TO ER. F/U W/ PCP. D-DIMER NEG FOR DVT. - EKG/XRAY/CT EKG: Atrial, Fibrillation, no ST T wave changes Departure - Departure Clinical Impression: Bilateral lower extremity edema, Weight gain, Atrial fibrillation with controlled ventricular response CHF (congestive heart failure) Qualifiers: Heart failure type: unspecified Heart failure chronicity: chronic Qualified Code(s): I50.9 - Heart failure, unspecified Dyspnea Qualifiers: Dyspnea type: shortness of breath Qualified Code(s): R06.02 - Shortness of breath; R06.00 - Dyspnea, unspecified; R06.01 - Orthopnea DM2 (diabetes mellitus, type 2) Qualifiers: Diabetes mellitus watermaster insulin use: without watermaster use Diabetes mellitus complication status: with circulatory complication Diabetes mellitus complication detail: with other circulatory complications Qualified Code(s): E11.59 - Type 2 diabetes mellitus with other circulatory complications Disposition: Discharge to Asst Living Condition: Fair Departure Forms: ED Discharge - Pt. Copy, Patient Portal Self Enrollment Instructions: Heart Failure, Adult (DC), Dependent Edema (DC) Diet: diabetic diet, low salt diet Activity: increase activity as tolerated Referrals: Jerry Locke MD [Primary Care Provider] - 1-5 Days Home Medications: Ambulatory Orders Amlodipine Besylate [Norvasc] 10 mg PO DAILY 06/22/14 Furosemide 40 mg PO 0730,1200 06/22/14 Metformin HCl [Metformin Hydrochloride] 500 mg PO BID 06/22/14 Potassium Chloride [K-Tab] 10 meq PO 0730,1200 06/22/14 Warfarin Sodium 2 mg PO BEDTIME 06/22/14 Allopurinol 300 mg PO DAILY 10/14/18 Donepezil Hydrochloride [Donepezil HCl] 10 mg PO BEDTIME 10/14/18 Duloxetine HCl 60 mg PO DAILY 10/14/18 Nitroglycerin 0.4 mg Tab [Nitrostat] 0.4 mg SL PRN PRN 10/14/18 Ranitidine HCl 150 mg PO BEDTIME 10/14/18 Mirabegron [Myrbetriq] 50 mg PO DAILY 11/30/18 Colchicine 0.6 mg PO BID PRN 01/01/19 Gabapentin [Neurontin] 900 mg PO Q6H PRN 01/01/19 Meclizine HCl [Meclizine] 25 mg PO TID PRN 01/01/19 Additional Instructions: Usually you take Lasix 40 mg twice per day (1 tablet twice per day). For the next 3 days, please double your usual dose (take 2 tablets twice per day) and then see your regular Dr. this Monday to check the blood pressure and adjust an medications as needed. The increased lasix dose for 3 days will help to remove more fluid from the legs, which will in turn help the swelling, light headedness, breathing, and water weight gain.
[2019-01-01 13:32] VITALS: O2SAT 100
[2019-01-01 14:04] VITALS: BP 148/86; TEMP 97
== END 2019-01-01 13:51 ==
LOC: ER 09:53
DX: I50.9 Heart failure, unspecified (principal); R60.0 Localized edema; R06.02 Shortness of breath; E11.59 Type 2 diabetes mellitus with other circulatory complications; I48.91 Unspecified atrial fibrillation; R63.5 Abnormal weight gain; K21.9 Gastro-esophageal reflux disease without esophagitis; J44.9 Chronic obstructive pulmonary disease, unspecified; I11.0 Hypertensive heart disease with heart failure; Z79.01 Long term (current) use of anticoagulants; Z79.899 Other long term (current) drug therapy; Z85.528 Personal history of other malignant neoplasm of kidney; Z86.718 Personal history of other venous thrombosis and embolism; Z79.84 Long term (current) use of oral hypoglycemic drugs
CPT/HCPCS: 36415; 71045; 80053; 83880; 85025; 85379; 85610; 85730; 93005; 94760; J1940

== ENCOUNTER 2019-01-25 13:46 | Emergency (ER) | payer MEDICARE, OTHER ==
--- NOTE | 2019-01-25 14:03 | ED.PDOC ---
History of Present Illness - General Chief Complaint: Trauma Stated Complaint: fell and hit her head Time Seen by Provider: 01/25/19 13:58 Source: patient Exam Limitations: no limitations - History of Present Illness Initial Comments: patient comes in today secondary to head injury. Patient states she has been dizzy off and on for about a year. Today she states that while she was sitting on the toilet she leaned foward and just went too far forward and fell. She is hit her right side of her face and head but is complaining of pain to the left side of her head. She denies loss of consciousness, nausea, emesis, or vision change. She is alert and denies any other complaints. 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 Patient also has a past history of diabetes and hypertension. Timing/Duration: momentarily Severity: moderate Improving Factors: nothing Worsening Factors: nothing Associated Symptoms: denies symptoms Allergies/Adverse Reactions: Allergies NO KNOWN ALLERGY Allergy (Verified 10/21/18 04:50) Home Medications: Ambulatory Orders Amlodipine Besylate [Norvasc] 10 mg PO DAILY 06/22/14 Furosemide 40 mg PO 0730,1200 06/22/14 Metformin HCl [Metformin Hydrochloride] 500 mg PO BID 06/22/14 Potassium Chloride [K-Tab] 10 meq PO 0730,1200 06/22/14 Warfarin Sodium 2 mg PO BEDTIME 06/22/14 Allopurinol 300 mg PO DAILY 10/14/18 Donepezil Hydrochloride [Donepezil HCl] 10 mg PO BEDTIME 10/14/18 Duloxetine HCl 60 mg PO DAILY 10/14/18 Nitroglycerin 0.4 mg Tab [Nitrostat] 0.4 mg SL PRN PRN 10/14/18 Ranitidine HCl 150 mg PO BEDTIME 10/14/18 Mirabegron [Myrbetriq] 50 mg PO DAILY 11/30/18 Colchicine 0.6 mg PO BID PRN 01/01/19 Gabapentin [Neurontin] 900 mg PO Q6H PRN 01/01/19 Meclizine HCl [Meclizine] 25 mg PO TID PRN 01/01/19 Review of Systems - Review of Systems Constitutional: States: other - dizziness . Denies: chills, fever, malaise EENTM: Denies: eye pain, blurred vision, ear pain, nose congestion, throat pain Respiratory: States: no symptoms reported. Denies: cough, short of breath Cardiology: States: no symptoms reported. Denies: chest pain, edema, palpitations, syncope Gastrointestinal/Abdominal: States: no symptoms reported. 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 Hx of HIV: No Hx Hepatitis C: No Hx MRSA: No - Vaccination History Hx Tetanus, Diphtheria Vaccination: Yes Hx Influenza Vaccination: Yes - 2017 Hx Pneumococcal Vaccination: Yes - Social History Hx Tobacco Use: No Hx Chewing Tobacco Use: No Hx Alcohol Use: No Hx Substance Use: No Hx Substance Use Treatment: No Hx Depression: No Hx Physical Abuse: No Hx Emotional Abuse: No Hx Suspected Abuse: No - Female History Patient : No Family Medical History - Family History Mother Family History: Unknown Hx Family Asthma: No Hx Cardiac Disease: Yes - mom Hx Family Diabetes: Yes - dad Hx Family Cancer: Yes - lip -son Hx Family;Other: DVT/PE -dad Physical Exam - Physical Exam General Appearance: Alert, Comfortable, No apparent distress Eye Exam: bilateral normal Ears, Nose, Throat: hearing grossly normal, normal ENT inspection, normal pharynx, other - bruising to right cheekbone no instability Neck: non-tender, full range of motion, supple, normal inspection Respiratory: chest non-tender, lungs clear, normal breath sounds, no respiratory distress, no accessory muscle use Cardiovascular/Chest: normal peripheral pulses, regular rate, rhythm, no murmur Peripheral Pulses: radial,right: 2+, radial,left: 2+, dorsalis pedis,right: 2+, dorsalis pedis,left: 2+ Gastrointestinal/Abdominal: normal bowel sounds, non tender, soft Back Exam: normal inspection Extremity: non-tender, normal inspection Neurologic: energy project manager II-XII nml as tested, no motor/sensory deficits, alert, oriented x 3 DTR: 1+: Patellar, left, Patellar, right, 2+: Biceps, left, Biceps, right Skin Exam: normal color Lymphatic: no adenopathy Progress - Progress Progress: 01/25/19 15:08 patient now with no pain and feels much better. Son is in room and results explained to both patient and son. - Results/Orders Results/Orders: Patient Name: MIMI ARCHULETA Gender: Female Date of : 1930 Referring Physician: SHANNON MUÑOZ Organization: [facility] Accession Number: [id number] Requested Date: January 25, 2019 13:58 Report Status: Final Requested Procedure: 1 Procedure Description: Head Modality: CT Findings Reporting MD: Dirk Blanchard Fellow MD: Not available Dictation Time: Early Education Teacher: Not available Diamond Mounter Date: EXAM DESCRIPTION: Head: Computed Tomography. CLINICAL HISTORY: head injury on warfarin COMPARISON: CT scan of the head without contrast 10/14/2018. TECHNIQUE: Non-helical axial scans through the skull and brain, at 2.5 x 20 mm intervals, non-contrast. Sagittal and coronal 2.0 mm reconstructions. Total Exam DLP: 859.97 mGy-cm. This exam was performed according to our departmental dose-optimization program which includes automated exposure control, adjustment of the mA and/or kV according to patient size and/or use of iterative reconstruction technique; to reduce radiation dose to as low as reasonably achievable (ALARA). FINDINGS: No hemorrhage, no mass-effect, and no midline shift. Bilateral periventricular low-density mainly in the bilateral frontal lobes and more on the right than the left also involving the flores radiata. This is stable since the prior study. No abnormal radiodense material in the brain parenchyma except for minimal basal ganglial calcifications. Vascular calcifications anterior and posterior; physiologic calcifications in the pineal gland and choroid plexus. No effacement or displacement of the ventricles, CSF spaces, or subdural spaces. No subarachnoid or intraventricular hemorrhage. No extra axial fluid collection or hemorrhage. No gross abnormalities of the bony calvarium. Stable thickening of the inner table of the bilateral frontal bones. Minimal mucosal periosteal thickening in the ethmoid air cells and maxillary antra, also anterior left sphenoid sinus. No significant change from the prior study. Mastoid air cells are unremarkable. IMPRESSION: 1. No hemorrhage, no mass effect, no midline shift. Cortical atrophy is stable. Low-density white matter changes, most prevalent in the left frontal lobe are stable since the prior study. No subarachnoid hemorrhage or extra-axial hemorrhage or [facility] [address] [place] [address], [address] [place], [place] T [phone] [employer] - Report exported on Jan 25, 2019 14:51:78 -[id number] - Page 2 of [address] scans are insensitive for detecting small CVAs in the first 24 hours after onset. Evaluation of the brain stem is also limited. If symptoms persist, consider NON-EMERGENT MRI scan of the brain with diffusion imaging. Patient Name: JAVDE MOSELEY Gender: Female Date of : December 02, 1932 Referring Physician: SHANNON MUÑOZ Organization: [facility] Accession Number: [id number] Requested Date: January 25, 2019 13:52 Report Status: Final Requested Procedure: 1 Procedure Description: Head Modality: CT Findings Reporting MD: Popeye Peña Fellow MD: Not available Dictation Time: Early Education Teacher: Not available Diamond Mounter Date: EXAM DESCRIPTION: CT-Head CLINICAL HISTORY: syncope COMPARISON: 12/25/2018 TECHNIQUE: Multiple axial images of the head without contrast. Multiplanar reformatted images. This exam was performed according to our departmental dose-optimization program, which includes automated exposure control, adjustment of the mA and/or kV according to patient size and/or use of iterative reconstruction technique. FINDINGS: There is no CT evidence of intracranial hemorrhage, mass effect, or large territory infarction. Moderate generalized volume loss. Moderate patchy supratentorial white matter hypodensities. Mineralization in the basal ganglia. There are no abnormal extra-axial fluid collections. Calcific plaque in the visualized arteries. There is no acute calvarial defect. The visualized paranasal sinuses and the mastoids are clear. IMPRESSION: 1. No CT evidence of an acute intracranial abnormality. If there is concern for an acute or subacute infarct, consider follow-up MRI. 2. Advanced senescent changes - EKG/XRAY/CT EKG: Atrial, Fibrillation, no ST T wave changes Comments: HR 70 Departure - Departure Clinical Impression: Contusion of head Qualifiers: Encounter type: initial encounter Contusion of head detail: periocular area Laterality: right Qualified Code(s): S00.11XA - Contusion of right eyelid and periocular area, initial encounter Disposition: Discharge to Home or Self Care Condition: Good Departure Forms: ED Discharge - Pt. Copy, Patient Portal Self Enrollment Instructions: DI for Trauma Referrals: Jerry Locke MD [Primary Care Provider] - 1-2 Weeks Home Medications: Ambulatory Orders Amlodipine Besylate [Norvasc] 10 mg PO DAILY 06/22/14 Furosemide 40 mg PO 0730,1200 06/22/14 Metformin HCl [Metformin Hydrochloride] 500 mg PO BID 06/22/14 Potassium Chloride [K-Tab] 10 meq PO 0730,1200 06/22/14 Warfarin Sodium 2 mg PO BEDTIME 06/22/14 Allopurinol 300 mg PO DAILY 10/14/18 Donepezil Hydrochloride [Donepezil HCl] 10 mg PO BEDTIME 10/14/18 Duloxetine HCl 60 mg PO DAILY 10/14/18 Nitroglycerin 0.4 mg Tab [Nitrostat] 0.4 mg SL PRN PRN 10/14/18 Ranitidine HCl 150 mg PO BEDTIME 10/14/18 Mirabegron [Myrbetriq] 50 mg PO DAILY 11/30/18 Colchicine 0.6 mg PO BID PRN 01/01/19 Gabapentin [Neurontin] 900 mg PO Q6H PRN 01/01/19 Meclizine HCl [Meclizine] 25 mg PO TID PRN 01/01/19 Additional Instructions: return to ER for altered LOC, emesis, change in vision
--- NOTE | 2019-01-25 14:42 | CT ---
EXAM DESCRIPTION: Head: Computed Tomography. CLINICAL HISTORY: head injury on warfarin COMPARISON: CT scan of the head without contrast 10/14/2018. TECHNIQUE: Non-helical axial scans through the skull and brain, at 2.5 x 20 mm intervals, non-contrast. Sagittal and coronal 2.0 mm reconstructions. Total Exam DLP: 859.97 mGy-cm. This exam was performed according to our departmental dose-optimization program which includes automated exposure control, adjustment of the mA and/or kV according to patient size and/or use of iterative reconstruction technique; to reduce radiation dose to as low as reasonably achievable (ALARA). FINDINGS: No hemorrhage, no mass-effect, and no midline shift. Bilateral periventricular low-density mainly in the bilateral frontal lobes and more on the right than the left also involving the flores radiata. This is stable since the prior study. No abnormal radiodense material in the brain parenchyma except for minimal basal ganglial calcifications. Vascular calcifications anterior and posterior; physiologic calcifications in the pineal gland and choroid plexus. No effacement or displacement of the ventricles, CSF spaces, or subdural spaces. No subarachnoid or intraventricular hemorrhage. No extra axial fluid collection or hemorrhage. No gross abnormalities of the bony calvarium. Stable thickening of the inner table of the bilateral frontal bones. Minimal mucosal periosteal thickening in the ethmoid air cells and maxillary antra, also anterior left sphenoid sinus. No significant change from the prior study. Mastoid air cells are unremarkable. IMPRESSION: 1. No hemorrhage, no mass effect, no midline shift. Cortical atrophy is stable. Low-density white matter changes, most prevalent in the left frontal lobe are stable since the prior study. No subarachnoid hemorrhage or extra-axial hemorrhage or abnormal fluid. 2. CT scans are insensitive for detecting small CVAs in the first 24 hours after onset. Evaluation of the brain stem is also limited. If symptoms persist, consider NON-EMERGENT MRI scan of the brain with diffusion imaging. Electronically signed by: Dirk Blanchard MD 01/25/2019 2:40 PM CDT
[2019-01-25 18:48] VITALS: BP 151/73; TEMP 98.5; O2SAT 98
== END 2019-01-25 16:05 | disposition home or self-care (01) ==
LOC: ER 13:46
DX: S00.11XA Contusion of right eyelid and periocular area, initial encounter (principal); S00.83XA Contusion of other part of head, initial encounter; R42 Dizziness and giddiness; I48.91 Unspecified atrial fibrillation; J44.9 Chronic obstructive pulmonary disease, unspecified; I50.9 Heart failure, unspecified; E11.9 Type 2 diabetes mellitus without complications; I11.0 Hypertensive heart disease with heart failure; K21.9 Gastro-esophageal reflux disease without esophagitis; Z85.528 Personal history of other malignant neoplasm of kidney; Z79.01 Long term (current) use of anticoagulants; Z79.84 Long term (current) use of oral hypoglycemic drugs; Z79.899 Other long term (current) drug therapy; Z86.718 Personal history of other venous thrombosis and embolism; Z86.711 Personal history of pulmonary embolism; W18.11XA Fall from or off toilet without subsequent striking against object, initial encounter; Y92.9 Unspecified place or not applicable

== ENCOUNTER 2019-03-05 15:40 | Observation (INO) | payer MEDICARE, OTHER ==
[2019-03-05] MEDS ORDERED: ACETAMINOPHEN 500 MG TAB PO ONE (18:13)
[2019-03-05] MEDS ORDERED: ONDANSETRON INJ 4 MG/2 ML VIAL IV ONE (18:13)
--- NOTE | 2019-03-05 18:18 | ED.PDOC ---
History of Present Illness - General Chief Complaint: GI Problem Stated Complaint: N/V/D,dizziness Time Seen by Provider: 03/05/19 18:03 - History of Present Illness Initial Comments: 88 yo F PMH HTN DM AFib CHF presents to ED 2 sons and daughter at bedside, PMD Dr. Locke, c/o dizziness nausea vomiting diarrhea and abdominal pain x1 day. Pt seen and evaluated here for fall and has recently started diuretics. Told by physician here that pt. was hypokalemic. Denies fever admits chilld nausea vomiting diarrhea denies chest pain admits sob denies diaphoresis. Admits decreased appetite and symptoms disturbing rest no urinary complaints. Denies drinking or smoking admits FH HTN DM. No other c/o today. Review of Systems - Review of Systems Constitutional: States: weakness EENTM: States: see HPI Respiratory: States: short of breath Cardiology: States: no symptoms reported Gastrointestinal/Abdominal: States: abdominal pain, diarrhea, nausea, vomiting Genitourinary: States: no symptoms reported Musculoskeletal: States: no symptoms reported Skin: States: no symptoms reported Neurological: States: other - dizziness Endocrine: States: no symptoms reported Hematologic/Lymphatic: States: no symptoms reported All other Systems: Reviewed and Negative Past Medical History (General) - Patient Medical History Hx Seizures: No Hx Stroke: No Hx Dementia: No Hx Asthma: No Hx of COPD: Yes Hx Cardiac Disorders: Yes - A-Fib; DVT's Hx Congestive Heart Failure: Yes Hx Pacemaker: No Hx Hypertension: Yes Hx Thyroid Disease: No Hx Diabetes: Yes Hx Gastroesophageal Reflux: Yes Hx Renal Disease: Yes - 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 Hx Cancer: Yes - R kidney Hx of HIV: No Hx Hepatitis C: No Hx MRSA: No Surgical History: cholecystectomy - Vaccination History Hx Tetanus, Diphtheria Vaccination: Yes Hx Influenza Vaccination: Yes Hx Pneumococcal Vaccination: Yes - Social History Hx Tobacco Use: No Hx Chewing Tobacco Use: No Hx Alcohol Use: No Hx Substance Use: No Hx Substance Use Treatment: No Hx Depression: No Hx Physical Abuse: No Hx Emotional Abuse: No Hx Suspected Abuse: No - Activities of Daily Living [facility]Assisted Living (if applicable):: [place] - Female History Patient : No Family Medical History - Family History Mother Family History: Unknown Hx Family Asthma: No Hx Cardiac Disease: Yes - mom Hx Family Diabetes: Yes - dad Hx Family Cancer: Yes - lip -son Hx Family;Other: DVT/PE -dad Physical Exam - Physical Exam General Appearance: Other - ecchymotic lesion right upper outer lid Eyes, Ears, Nose, Throat Exam: normal ENT inspection Neck: non-tender, full range of motion Respiratory: rales, other - faint rales bases Cardiovascular/Chest: regular rate, rhythm Gastrointestinal/Abdominal: soft, tenderness - diffuse Back Exam: normal inspection Extremity: normal range of motion Neurologic: no motor/sensory deficits Skin Exam: normal color Progress - Progress Progress: 03/05/19 18:21 A/P-Abdominal Pain, Nausea Vomiting Diarrhea, Dehydration, Dizziness 1.ct head iv tylenol cbc cmp lipase troponin bnp ekg cxr reassess 03/05/19 22:46 Laboratory Tests 03/05/19 03/05/19 03/05/19 18:30 18:30 18:30 WBC 9.9 RBC 4.83 Hgb 14.5 Hct 43.6 MCV 90.3 MCH 30.0 MCHC 33.2 RDW 14.1 Plt Count 232 MPV 9.1 Absolute Neuts (auto) 8.50 H Absolute Lymphs (auto) 0.70 L Absolute Monos (auto) 0.60 Absolute Eos (auto) 0.00 Absolute Basos (auto) 0.00 Neutrophils % 85.5 H Lymphocytes % 7.3 L Monocytes % 6.5 Eosinophils % 0.2 L Basophils % 0.5 Sodium 134 L Potassium 2.9 L Chloride 80 L Carbon Dioxide 34 H Anion Gap 22.9 H BUN 42 H Creatinine 1.86 H BUN/Creatinine Ratio 22.6 H Random Glucose 324 H Serum Osmolality 291.2 Calcium 10.2 Total Bilirubin 1.6 H AST 22 ALT 22 Alkaline Phosphatase 102 Troponin I 0.02 B-Natriuretic Peptide 77.8 Serum Total Protein 8.1 Albumin 4.4 Globulin 3.7 H Albumin/Globulin Ratio 1.2 Lipase 42 Urine Color Urine Appearance Urine pH Ur Specific [place] Urine Protein Urine Glucose (UA) Urine Ketones Urine Blood Urine Nitrite Urine Bilirubin Urine Urobilinogen Ur Leukocyte Esterase Urine RBC Urine WBC Ur Epithelial Cells Urine Bacteria 03/05/19 20:35 WBC RBC Hgb Hct MCV MCH MCHC RDW Plt Count MPV Absolute Neuts (auto) Absolute Lymphs (auto) Absolute Monos (auto) Absolute Eos (auto) Absolute Basos (auto) Neutrophils % Lymphocytes % Monocytes % Eosinophils % Basophils % Sodium Potassium Chloride Carbon Dioxide Anion Gap BUN Creatinine BUN/Creatinine Ratio Random Glucose Serum Osmolality Calcium Total Bilirubin AST ALT Alkaline Phosphatase Troponin I B-Natriuretic Peptide Serum Total Protein Albumin Globulin Albumin/Globulin Ratio Lipase Urine Color Yellow Urine Appearance Cloudy Urine pH 6.0 Ur Specific [place] 1.015 Urine Protein 30 Urine Glucose (UA) Negative Urine Ketones Negative Urine Blood Small H Urine Nitrite Negative Urine Bilirubin Negative Urine Urobilinogen 0.2 Ur Leukocyte Esterase Small H Urine RBC 3-5 H Urine WBC 10-20 H Ur Epithelial Cells 1-3 Urine Bacteria 3+ H 03/05/19 22:50 EXAM DESCRIPTION: Abdomen t/Pelvis w/o Contrast CLINICAL HISTORY: Abdominal pain, vomiting. COMPARISON: CT chest with contrast January 02, 2013 eventration of the right hemidiaphragm is noted.. TECHNIQUE: Sequential axial images were obtained with a multi-detector helical CT without administration of intravenous iodinated contrast material. Oral contrast was not given. Automatic exposure control (AEC), mA and/or kV adjustment by patient size, and/or iterative reconstructive technique was used, per departmental dose optimization program, during the performance of the CT examination. The lack of contrast limits detailed evaluation of the abdominal organs. FINDINGS: The visualized lung bases are clear. Increased fat deposition is noted between the left and right atrium, unchanged since prior CT chest. The non-contrast enhanced images of the liver is unremarkable . The spleen, pancreas and right adrenal gland are unremarkable. Presence of a low-attenuation left adrenal nodule measuring 3 x 2.4 cm in size is stable compared to prior CT chest and most likely represents a nonfunctioning adenoma. The gallbladder is surgically absent. The kidneys are normal in appearance. There are no renal calculi. Presence of a exophytic cyst arising from the upper pole of the right kidney is noted. Presence of an exophytic calcified lesion arising from the lower pole of the right kidney is likely a cyst.. The stomach is unremarkable. The loops of small bowel are unremarkable. The appendix is normal. The colon demonstrates evidence of colonic diverticulosis. The aorta and inferior vena cava are unremarkable. Presence of an IVC filter is noted. Presence of vascular collaterals are noted subcutaneously. Findings suggests chronic IVC occlusion. The bladder is unremarkable. Reproductive organs are absent. There is no pelvic or abdominal lymphadenopathy. No ascites. No free air. The inguinal regions are unremarkable. The visualized bony structures are osteoporotic with evidence of compression fracture of L2 vertebral body of unknown age. This appears old. Disc degeneration is noted at L5-S1.. IMPRESSION: Colonic diverticulosis. 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 Presence of an IVC filter. Calcified exophytic cyst arising from the lower pole of the right kidney. Old L2 compression fracture. Electronically signed by: Lala Sequeira MD 03/05/2019 7:28 PM CDT EXAM DESCRIPTION: XR Chest, one view CLINICAL HISTORY: sob. COMPARISON: January 01, 2019 FINDINGS: The heart is normal in size. The pulmonary vascularity is normal. The lungs are clear. No dense focal consolidation is seen. No pneumothorax or pleural effusion is seen. The osseous structures appear unremarkable. IMPRESSION: No acute cardiopulmonary process. Electronically signed by: Lala Sequeira MD 03/05/2019 7:29 PM CDT EXAM DESCRIPTION: CT head without contrast. CLINICAL HISTORY: fall dizziness . COMPARISON: 03/04/2019 TECHNIQUE: Contiguous axial sections are obtained as per protocol. Sagittal and coronal reformations are submitted Automatic exposure control (AEC), mA and/or kV adjustment by patient size, and/or iterative reconstructive technique was used, per departmental dose optimization program, during the performance of the CT examination. FINDINGS: Generalized cortical atrophy is noted in the frontoparietal convexities. Minimal periventricular deep white matter ischemic demyelinating changes are noted adjacent to the frontal horns. Ventricles, sulci and cisterns appear normal. Normal abbasi-white matter differentiation is noted. No evidence of intra or extra-axial hemorrhage, hematoma, mass, mass effect or midline shift is noted. The posterior fossa st ructures appear normal. The bony calvarium appears intact. The soft tissues of the scalp appear unremarkable. Normal appearance of the orbits are noted. The paranasal sinuses and mastoids appear normal. Small mucus retention cyst is noted in the left sphenoid sinus IMPRESSION: Unremarkable non contrast enhanced CT examination of brain. No interval change since yesterday. Electronically signed by: Lala Sequeira MD 03/05/2019 7:17 PM CDT EXAM DESCRIPTION: Cervical Spine CLINICAL HISTORY: fall dizziness COMPARISON: 03/04/2019 TECHNIQUE: Axial imaging is performed with sagittal and coronal reformations. Automatic exposure control (A EC), mA and/or kV adjustment by patient size, and/or iterative reconstructive technique was used, per departmental dose optimization program, during the performance of the CT examination. FINDINGS: Normal alignment and appearance is noted on the wildlife policy professional views. Normal alignment of the cervical vertebral bodies are noted without any evidence of fracture, deformity or subluxation. The odontoid process and the craniocervical junction appears unremarkable. Prevertebral soft tissues are normal. The zygapophyseal joints and the facets demonstrate normal alignment. The bones are normally mineralized. Significant degenerative changes are not seen. There is no encroachment upon the spinal canal. Because retention cyst is noted in the left maxillary sinus. IMPRESSION: Normal CT examination of the cervical spine. No evidence of fracture. No interval change. Electronically signed by: Lala Sequeira MD 03/05/2019 7:18 PM CDT A/P-Hypokalemia, Abdominal Pain, Nausea Vomiting Diarrhea, Dehydration, Dizziness 1.ct head c spine iv tylenol cbc cmp lipase troponin bnp ekg cxr ct abdomen pelvis KDUR ADMIT call [facility] Hospitalist Hospitalist accepts at 11:10pm EKG-non specific TW changes irregularly irregular rhythm rate controlled AFib 83bpm 03/05/19 23:09 Departure - Departure Clinical Impression: Hypokalemia, Nausea, vomiting and diarrhea, Dehydration, Dizziness Acute on chronic renal failure Qualifiers: Acute renal failure type: unspecified Chronic kidney disease stage: unspecified stage Qualified Code(s): N17.9 - Acute kidney failure, unspecified; N18.9 - Chronic kidney disease, unspecified Abdominal pain Qualifiers: Abdominal location: generalized Qualified Code(s): R10.84 - Generalized abdominal pain Disposition: Discharge to Home or Self Care Departure Forms: ED Discharge - Pt. Copy, Patient Portal Self Enrollment Referrals: Jerry Locke MD [Primary Care Provider] - 1-2 Weeks Home Medications: Ambulatory Orders Amlodipine Besylate [Norvasc] 10 mg PO DAILY 06/22/14 Furosemide 40 mg PO 0730,1200 06/22/14 Metformin HCl [Metformin Hydrochloride] 500 mg PO BID 06/22/14 Potassium Chloride [K-Tab] 10 meq PO 0730,1200 06/22/14 Warfarin Sodium 2 mg PO BEDTIME 06/22/14 Allopurinol 300 mg PO DAILY 10/14/18 Donepezil Hydrochloride [Donepezil HCl] 10 mg PO BEDTIME 10/14/18 Duloxetine HCl 60 mg PO DAILY 10/14/18 Nitroglycerin 0.4 mg Tab [Nitrostat] 0.4 mg SL PRN PRN 10/14/18 Ranitidine HCl 150 mg PO BEDTIME 10/14/18 Mirabegron [Myrbetriq] 50 mg PO DAILY 11/30/18 Colchicine 0.6 mg PO BID PRN 01/01/19 Gabapentin [Neurontin] 900 mg PO Q6H PRN 01/01/19 Meclizine HCl [Meclizine] 25 mg PO TID PRN 01/01/19 Potassium Chloride [K-Tab] 20 meq PO BID 4 Days #16 tab 03/05/19
--- NOTE | 2019-03-05 19:18 | CT ---
EXAM DESCRIPTION: CT head without contrast. CLINICAL HISTORY: fall dizziness . COMPARISON: 03/04/2019 TECHNIQUE: Contiguous axial sections are obtained as per protocol. Sagittal and coronal reformations are submitted Automatic exposure control (AEC), mA and/or kV adjustment by patient size, and/or iterative reconstructive technique was used, per departmental dose optimization program, during the performance of the CT examination. FINDINGS: Generalized cortical atrophy is noted in the frontoparietal convexities. Minimal periventricular deep white matter ischemic demyelinating changes are noted adjacent to the frontal horns. Ventricles, sulci and cisterns appear normal. Normal abbasi-white matter differentiation is noted. No evidence of intra or extra-axial hemorrhage, hematoma, mass, mass effect or midline shift is noted. The posterior fossa structures appear normal. The bony calvarium appears intact. The soft tissues of the scalp appear unremarkable. Normal appearance of the orbits are noted. The paranasal sinuses and mastoids appear normal. Small mucus retention cyst is noted in the left sphenoid sinus IMPRESSION: Unremarkable non contrast enhanced CT examination of brain. No interval change since yesterday. Electronically signed by: Lala Sequeira MD 03/05/2019 7:17 PM CDT
--- NOTE | 2019-03-05 19:20 | CT ---
EXAM DESCRIPTION: Cervical Spine CLINICAL HISTORY: fall dizziness COMPARISON: 03/04/2019 TECHNIQUE: Axial imaging is performed with sagittal and coronal reformations. Automatic exposure control (A EC), mA and/or kV adjustment by patient size, and/or iterative reconstructive technique was used, per departmental dose optimization program, during the performance of the CT examination. FINDINGS: Normal alignment and appearance is noted on the agricultural aircraft pilot views. Normal alignment of the cervical vertebral bodies are noted without any evidence of fracture, deformity or subluxation. The odontoid process and the craniocervical junction appears unremarkable. Prevertebral soft tissues are normal. The zygapophyseal joints and the facets demonstrate normal alignment. The bones are normally mineralized. Significant degenerative changes are not seen. There is no encroachment upon the spinal canal. Because retention cyst is noted in the left maxillary sinus. IMPRESSION: Normal CT examination of the cervical spine. No evidence of fracture. No interval change. Electronically signed by: Lala Sequeira MD 03/05/2019 7:18 PM CDT
--- NOTE | 2019-03-05 19:30 | RAD ---
EXAM DESCRIPTION: XR Chest, one view CLINICAL HISTORY: sob. COMPARISON: January 01, 2019 FINDINGS: The heart is normal in size. The pulmonary vascularity is normal. The lungs are clear. No dense focal consolidation is seen. No pneumothorax or pleural effusion is seen. The osseous structures appear unremarkable. IMPRESSION: No acute cardiopulmonary process. Electronically signed by: Lala Sequeira MD 03/05/2019 7:29 PM CDT
--- NOTE | 2019-03-05 19:30 | CT ---
EXAM DESCRIPTION: Abdomen t/Pelvis w/o Contrast CLINICAL HISTORY: Abdominal pain, vomiting. COMPARISON: CT chest with contrast January 02, 2013 eventration of the right hemidiaphragm is noted.. TECHNIQUE: Sequential axial images were obtained with a multi-detector helical CT without administration of intravenous iodinated contrast material. Oral contrast was not given. Automatic exposure control (AEC), mA and/or kV adjustment by patient size, and/or iterative reconstructive technique was used, per departmental dose optimization program, during the performance of the CT examination. The lack of contrast limits detailed evaluation of the abdominal organs. FINDINGS: The visualized lung bases are clear. Increased fat deposition is noted between the left and right atrium, unchanged since prior CT chest. The non-contrast enhanced images of the liver is unremarkable . The spleen, pancreas and right adrenal gland are unremarkable. Presence of a low-attenuation left adrenal nodule measuring 3 x 2.4 cm in size is stable compared to prior CT chest and most likely represents a nonfunctioning adenoma. The gallbladder is surgically absent. The kidneys are normal in appearance. There are no renal calculi. Presence of a exophytic cyst arising from the upper pole of the right kidney is noted. Presence of an exophytic calcified lesion arising from the lower pole of the right kidney is likely a cyst.. The stomach is unremarkable. The loops of small bowel are unremarkable. The appendix is normal. The colon demonstrates evidence of colonic diverticulosis. The aorta and inferior vena cava are unremarkable. Presence of an IVC filter is noted. Presence of vascular collaterals are noted subcutaneously. Findings suggests chronic IVC occlusion. The bladder is unremarkable. Reproductive organs are absent. There is no pelvic or abdominal lymphadenopathy. No ascites. No free air. The inguinal regions are unremarkable. The visualized bony structures are osteoporotic with evidence of compression fracture of L2 vertebral body of unknown age. This appears old. Disc degeneration is noted at L5-S1.. IMPRESSION: Colonic diverticulosis. 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 Presence of an IVC filter. Calcified exophytic cyst arising from the lower pole of the right kidney. Old L2 compression fracture. Electronically signed by: Lala Sequeira MD 03/05/2019 7:28 PM CDT
[2019-03-05] MEDS ORDERED: MECLIZINE HCL 12.5 MG TAB PO ONE (19:56)
[2019-03-05] MEDS ORDERED: POTASSIUM CHLORIDE 20 MEQ TAB PO ONE (22:54)
--- NOTE | 2019-03-05 23:36 | HP ---
SUPERVISING PHYSICIAN: Rambo Yan MD CHIEF COMPLAINT: Weakness, electrolyte imbalance. HISTORY OF PRESENT ILLNESS: This is an 88-year-old female who went to the Emergency Room last night for generalized weakness. According to the family, she has actually had some falls lately. She had a fall and sustained a left wrist fracture. She is supposed to followup with Dr. Hernández today in the clinic, however, she developed some nausea, vomiting and diarrhea yesterday and therefore she came to the Emergency Room. When she came to the Emergency Room, her workup on Monday showed some electrolyte imbalance and she was given some potassium and sent home. She then returned for the above reasons. When she did come, labs were repeated and showed a normal white count of 9.9 with hemoglobin 14.5, platelet count 232. Chemistry, however, showed sodium 134, potassium 2.9, chloride 108, CO2 34, BUN 42, creatinine 1.86, glucose 324, total bilirubin 1.6, calcium 10.2. She had CT scan of her head, cervical spine and abdomen and pelvis. The CT scan of her abdomen and pelvis shows chronic diverticulosis with other acute findings. Chest x-ray showed no acute cardiopulmonary process. CT scan of the brain contacted to show no acute findings. Given her weakness and electrolyte imbalance, she was referred for admission. At the time of examination this morning, the patient wakes up and answers questions appropriately. Her left wrist is an Chaim bandage. She has ecchymosis on her right thigh from her fall. PAST MEDICAL HISTORY: 1. Atrial fibrillation. 2. Diabetes mellitus, type 2. 3. Hyperlipidemia. 4. Hypertension. 5. Osteoporosis. 6. Peripheral neuropathy. 7. History of renal cell carcinoma with a partial right sided nephrectomy. 8. Gastroesophageal reflux disease. 9. History of pulmonary embolism and deep venous thromboses. 10. Congestive heart failure. PAST SURGICAL HISTORY: 1. Suri filter/IVC filter. 2. Left knee arthroscopy 3. Left total knee arthroplasty. 4. Cholecystectomy. 5. Hernia repair. 6. Hysterectomy. 7. Right partial nephrectomy. MEDICATIONS: Please see the electronic medication reconciliation record in the computer. ALLERGIES: NO KNOWN DRUG ALLERGIES. FAMILY HISTORY: Reviewed and noncontributory. SOCIAL HISTORY: No drinking, no smoking, no illicit drugs. She lives in assisted living and has home health come in once a week as well. REVIEW OF SYSTEMS: CONSTITUTIONAL: No fever or chills. No recent weight loss or weight gain. HEENT: No headaches, vision changes, ear pain, nasal congestion or throat pain. RESPIRATORY: No cough, hemoptysis or pleuritic chest pain. CARDIOVASCULAR: No chest pain, palpitations, but she does have peripheral edema. GASTROINTESTINAL: Positive for nausea, vomiting, diarrhea. No constipation, a little bit of abdominal pain, but this has since resolved. GENITOURINARY: No dysuria, frequency or flank pain. HEMATOLOGIC: Positive for easy bruising, but no transfusion reaction. MUSCULOSKELETAL: No muscle cramps, joint pain or joint swelling. NEUROLOGIC: Positive for weakness. No syncope or seizures. PHYSICAL EXAMINATION: VITAL SIGNS: Blood pressure 138/83. Heart rate 83. Respiratory rate 18. Temperature 97.5. Oxygen saturation 93%. GENERAL: Ms. Danielle is an 88-year-old female who is in no active distress currently. HEENT: Normocephalic. She does have ecchymosis around the right eye, but otherwise atraumatic. Pupils are equal and reactive. No nasal drainage. Throat with moist mucosa. NECK: Supple. Midline trachea. No jugular venous distention. CHEST: Symmetrical with equal rise and fall of the chest with inspiration and expiration. Lung sounds are clear to auscultation bilaterally. CARDIOVASCULAR: Regular rate and rhythm. Normal S1, S2. ABDOMEN: Soft, obese. Positive bowel sounds. No significant tenderness to palpation. GENITOURINARY: Deferred. EXTREMITIES: Lower extremities with some evidence of venous stasis, but no pitting edema. Pulses 2+. Capillary refill is less than 2 seconds. LABORATORY: Labs and films are as discussed in history of present illness. ASSESSMENT: 1. Generalized weakness resulting in a fall two days ago and sustaining a left distal radius fracture. 2. Acute kidney injury secondary to dehydration. 3. Electrolyte imbalance secondary to #2. 4. Diabetes mellitus, type 2. 5. Hypertension, controlled. 6. History of deep venous thrombosis status post IVC filter in the past. 7. History of transient ischemic attacks. PLAN: At this point, we will place on conservative IV fluids with potassium replacement. I am told she does have a history of congestive heart failure, but they are unaware of her echocardiogram. She does have distal radius fracture on the left, so we will contact Dr. Hernández and see if he wants to evaluate here in the hospital versus just see as an outpatient. We will restart her home medications as soon as they are verified in the computer. We will start her on a diet as well. I will get physical therapy to work with her for strengthening. She already is in assisted living and gets home health, but she may need physical therapy at some point because she is starting to have some more weakness. #[id number] MTDD
[2019-03-06] MEDS ORDERED: SODIUM CHLORIDE 0.9% (FLUSH) 10 ML SYG IV PRN (00:46)
[2019-03-06] MEDS ORDERED: IV SET AND CAP CHANGE INJ INJ SCH (01:00)
[2019-03-06] MEDS: KCL 20 MEQ/NS 1,000 ML IVS PRN ×2 (01:12→15:25)
[2019-03-06] MEDS ORDERED: DEXTROSE 50% 25 GM/50 ML SYG IV PRN (08:47)
[2019-03-06] MEDS ORDERED: GLUCAGON INJ 1 MG VIAL SUBCU PRN (08:47)
[2019-03-06] MEDS: INSULIN LISPRO 100 UNITS/ML PEN SUBCU SCH ×3 (12:08→20:48)
[2019-03-06] MEDS ORDERED: MECLIZINE HCL 12.5 MG TAB PO PRN (19:47)
[2019-03-06] MEDS ORDERED: DONEPEZIL HCL 5 MG TAB ONE (20:39)
[2019-03-06] MEDS: GABAPENTIN 300 MG CAP PO SCH (20:44)
[2019-03-06] MEDS: POTASSIUM CHLORIDE 10 MEQ TAB PO SCH (20:45)
[2019-03-06] MEDS: metFORMIN HCL 500 MG TAB PO SCH (20:46)
[2019-03-06] MEDS ORDERED: POTASSIUM CHLORIDE 10 MEQ TAB PO SCH (21:00)
[2019-03-06] MEDS ORDERED: WARFARIN SODIUM 2 MG TAB PO SCH (21:00)
[2019-03-06] MEDS ORDERED: NON-FORMULARY MEDICATION 1 EA MIS (Donepezil Hydrochloride [Donepezil Hcl] 10 MG) PO SCH (21:00)
[2019-03-07] MEDS: KCL 20 MEQ/NS 1,000 ML IVS PRN (01:20)
[2019-03-07] MEDS: INSULIN LISPRO 100 UNITS/ML PEN SUBCU SCH ×2 (08:00→12:23)
[2019-03-07] MEDS: metFORMIN HCL 500 MG TAB PO SCH (08:14)
[2019-03-07] MEDS: POTASSIUM CHLORIDE 10 MEQ TAB PO SCH (08:15)
[2019-03-07] MEDS: GABAPENTIN 300 MG CAP PO SCH (08:26)
[2019-03-07] MEDS ORDERED: NON-FORMULARY MEDICATION 1 EA MIS (Mirabegron [Myrbetriq] 50 MG) PO SCH (09:00)
[2019-03-07] MEDS ORDERED: ALLOPURINOL 300 MG TAB PO SCH (09:00)
[2019-03-07] MEDS ORDERED: SODIUM CHLORIDE 0.9% (FLUSH) 10 ML SYG IV ONE (10:07)
[2019-03-07] MEDS ORDERED: ACETAMINOPHEN 325 MG TAB PO PRN (10:50)
[2019-03-07] MEDS ORDERED: ACETAMINOPHEN SUPPOSITORY 325 MG PR ONE (11:06)
--- NOTE | 2019-03-07 14:33 | CONS ---
CHIEF COMPLAINT: Left wrist pain. HISTORY OF PRESENT ILLNESS: Ms. Danielle is an 88-year-old female with a history of a fall that occurred on 03/04/19. She had the acute onset of pain in the wrist. X-rays at that time revealed a wrist fracture. She was subsequently admitted for other issues and right now complains of pain only in the wrist. She has been in a splint. She says the pain when she attempts to use it is somewhere on the order of about an 8 intensity. Otherwise, alleviating factors include limitation of use. She denies any other extremity injury associated with this fall. She did not have any loss of consciousness. Associated symptoms are none. PAST SURGICAL HISTORY: 1. Nephrectomy. MEDICATIONS: 1. Amlodipine. 2. Furosemide. 3. Metformin. 4. Potassium. 5. Warfarin. 6. Alloplastic. 7. Donepezil. 8. Duloxetine. 9. Nitroglycerin. 10. Ranitidine. 11. Mirabegron. 12. Colchicine. 13. Gabapentin. 14. Meclizine. 15. Potassium. ALLERGIES: NO KNOWN DRUG ALLERGIES. IMMUNIZATIONS: Up to date. SOCIAL HISTORY: The patient does not drink, smoke or use any illicit drugs. FAMILY HISTORY: None pertinent to today's complaint. REVIEW OF SYSTEMS: Negative except as indicated in the History of Present Illness. HEENT: The patient reports no symptoms. RESPIRATORY: The patient reports no symptoms. CARDIOVASCULAR: The patient reports no symptoms. GASTROINTESTINAL: The patient reports no symptoms GENITOURINARY: The patient reports no symptoms. MUSCULOSKELETAL: Negative except as noted in History of Present Illness. SKIN: The patient reports no symptoms. NEUROLOGIC: The patient reports no symptoms. PHYSICAL EXAMINATION: VITAL SIGNS: Blood pressure 117/81. Pulse 80. O2 saturation 89% on room air. Temperature 97.2. MENTAL STATUS: The patient is awake, alert, and is able to give a good history and participate in the physical. The patient is oriented to person, place and time. SKIN: Normal tone and turgor. HEENT: Normocephalic, atraumatic. Pupils equal, round and reactive. Mucosal membranes are moist. NECK: Normal range of motion. No thyromegaly, no lymphadenopathy. CHEST: Normal respiratory excursion. CARDIAC: Regular rate and rhythm. No murmurs, rubs or gallops. MUSCULOSKELETAL: Bilateral lower extremities show no pain with range of motion. She has intact sensation in the extremities and they are warm and well perfused. She has no laxity, no malalignment and no deformity. There is no bruising. Skin is intact. The right upper extremity shows no pain with range of motion, no deformity, no evidence of trauma. Sensation is intact. It is warm and well perfused. Strength is 5/5. The left upper extremity shows full range of motion of the shoulder and elbow without deformity or malalignment. She has intact sensation. She has tenderness over the distal radius predominantly over the radial styloid. She has a warm and well perfused extremity. 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 Skin is intact although she does have extensive bruising secondary to her being on blood thinners. RADIOLOGY: X-rays show a nondisplaced distal radius fracture involving predominantly the radial styloid. ASSESSMENT: 1. Distal radius fracture. PLAN: The plan at this point is for closed treatment with bracing. PROCEDURE: She was measured and placed in an appropriate splint today. She is slated to be discharged today and we will followup with her in clinic in about 10 days. #[id number] [facility]
[2019-03-07 16:08] VITALS: BP 124/68; TEMP 98.3
[2019-03-07] MEDS ORDERED: metFORMIN HCL 500 MG TAB PO SCH (17:00)
[2019-03-07 19:58] VITALS: O2SAT 97
[2019-03-07] MEDS ORDERED: amLODIPine BESYLATE 5 MG TAB PO SCH (21:00)
[2019-03-07] MEDS ORDERED: DONEPEZIL HCL 5 MG TAB PO SCH (21:00)
[2019-03-07] MEDS ORDERED: DULoxetine HCL 30 MG CAP PO SCH (21:00)
--- NOTE | 2019-03-13 15:42 | DS ---
SUPERVISING PHYSICIAN: Rambo Yan MD ADMISSION DIAGNOSIS: 1. Generalized weakness resulting in a fall two days ago and sustaining a left distal radius fracture. 2. Acute kidney injury secondary to dehydration. 3. Electrolyte imbalance secondary to #2. 4. Diabetes mellitus, type 2. 5. Hypertension, controlled. 6. History of deep venous thrombosis status post IVC filter in the past. 7. History of transient ischemic attacks. DISCHARGE DIAGNOSIS: 1. Generalized weakness resulting in a fall two days ago and sustaining a left distal radius fracture. 2. Acute kidney injury secondary to dehydration. 3. Electrolyte imbalance secondary to #2. 4. Chronic atrial fibrillation with controlled ventricular rate. 5. Diabetes mellitus, type 2. 6. Hypertension, controlled. 7. History of deep venous thrombosis status post IVC filter in the past. 8. History of transient ischemic attacks. REASON FOR HOSPITALIZATION: This is an 88-year-old female who went to the Emergency Room last night for generalized weakness. According to the family, she has actually had some falls lately. She had a fall and sustained a left wrist fracture. She is supposed to followup with Dr. Hernández today in the clinic, however, she developed some nausea, vomiting and diarrhea yesterday and therefore she came to the Emergency Room. When she came to the Emergency Room, her workup on Monday showed some electrolyte imbalance and she was given some potassium and sent home. She then returned for the above reasons. When she did come, labs were repeated and showed a normal white count of 9.9 with hemoglobin 14.5, platelet count 232. Chemistry, however, showed sodium 134, potassium 2.9, chloride 108, CO2 34, BUN 42, creatinine 1.86, glucose 324, total bilirubin 1.6, calcium 10.2. She had CT scan of her head, cervical spine and abdomen and pelvis. The CT scan of her abdomen and pelvis shows chronic diverticulosis with other acute findings. Chest x-ray showed no acute cardiopulmonary process. CT scan of the brain contacted to show no acute findings. Given her weakness and electrolyte imbalance, she was referred for admission. At the time of examination this morning, the patient wakes up and answers questions appropriately. Her left wrist is an Chaim bandage. She has ecchymosis on her right thigh from her fall. LABORATORY: CBC on admission was within normal limits. There was a left shift. White count was 9,900. At discharge, the left had resolved and white count was 7,100. Hemoglobin and hematocrit were stable at 13 and 39.5, respectively. Coagulation studies showed PT 13.2, INR 1.33. On discharge, chemistries showed potassium 3.1 with anion gap normal at 17, but carbon dioxide high at 32. Creatinine 1.28. Blood sugars were elevated between 232 and 348. Total bilirubin was slightly elevated on admission. Troponin 0.02. Lipase normal at 42. Urinalysis showed small amount of leukocyte esterase, 3 to 5 RBCs, 10 to 20 WBCs, 1 to 3 epithelials with 3+ bacteria. MICROBIOLOGY: Final urine culture report showed E. coli that was fairly sensitive, just resistant to ampicillin, tetracycline and Bactrim. 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 She had a chest x-ray that showed no acute cardiopulmonary processes per radiologic interpretation. She had a cervical spine CT with no evidence of fracture. She had CT of the head without contrast and per radiologic interpretation showed unremarkable noncontrast CT of the brain. She had an EKG that showed afebrile with controlled ventricular rate at 83. HOSPITAL COURSE: Ms. Danielle was admitted for generalized weakness. She was given fluids and evaluated by Physical Therapy. It was felt that the patient would benefit from more aggressive physical therapy rehabilitation once her electrolytes had normalized. Therefore, arrangements were made to transfer the patient to [facility] in [place]. DISCHARGE PHYSICAL EXAMINATION: VITAL SIGNS: Temperature 98.3. Pulse 79. Blood pressure 124/68. Respirations 18. Saturation 92% on nasal cannula. GENERAL: The patient is resting comfortably. CHEST: Clear to auscultation. HEART: Regular rate and rhythm. ABDOMEN: Soft, nontender, positive bowel sounds. EXTREMITIES: Left wrist has brace in place. Distal pulses are strong. Capillary refill brisk. NEUROLOGIC: Alert and oriented times 3. PLAN: Ms. Danielle was discharged to transfer to [facility] for continued efforts for rehabilitation and reconditioning. CONDITION ON DISCHARGE: Stable and improved. DISPOSITION: The patient was discharged to the care of [facility]. #[id number] [facility]
== END 2019-03-07 15:00 ==
LOC: ER 15:40 → MS 23:34
PROVIDERS: ADMIT Nurse Practitioner; ATTEND Nurse Practitioner Family
DX: N17.9 Acute kidney failure, unspecified (principal); E86.0 Dehydration; R53.1 Weakness; E87.8 Other disorders of electrolyte and fluid balance, not elsewhere classified; E87.6 Hypokalemia; S52.502A Unspecified fracture of the lower end of left radius, initial encounter for closed fracture; R42 Dizziness and giddiness; E11.42 Type 2 diabetes mellitus with diabetic polyneuropathy; I11.0 Hypertensive heart disease with heart failure; E78.5 Hyperlipidemia, unspecified; I48.91 Unspecified atrial fibrillation; M81.0 Age-related osteoporosis without current pathological fracture; K21.9 Gastro-esophageal reflux disease without esophagitis; I50.9 Heart failure, unspecified; K57.30 Diverticulosis of large intestine without perforation or abscess without bleeding; W18.30XA Fall on same level, unspecified, initial encounter; Z66 Do not resuscitate; Z79.84 Long term (current) use of oral hypoglycemic drugs; Z79.01 Long term (current) use of anticoagulants; Z79.899 Other long term (current) drug therapy; Z86.718 Personal history of other venous thrombosis and embolism; Z86.73 Personal history of transient ischemic attack (TIA), and cerebral infarction without residual deficits; Z85.528 Personal history of other malignant neoplasm of kidney; Z90.5 Acquired absence of kidney; Z96.652 Presence of left artificial knee joint; Z90.49 Acquired absence of other specified parts of digestive tract; Z90.710 Acquired absence of both cervix and uterus
CPT/HCPCS: 96366 ×2; 96365; 96375; 96372 ×2; J2405; J3480 ×3; J1815; 80048 ×2; 80053; 87086; 82948 ×6; 36415 ×4; 87077; 87186; 81001; 85025 ×2; 83690; 83735; 85610; 84484; 83880; 36416 ×5; 71045; 70450; 72125; 74176; 97530 ×2; 97116; G8978; G8979; 97162; 99285; 93005; G0378